=== PATIENT | female | born 1960 | race Caucasian/White ===

== ENCOUNTER 2023-05-18 18:17 | Inpatient (IN) | payer BC, MEDICAID, OTHER ==
[2023-05-18 19:22] LABS: ALT 16 U/L (4-34); African American GFR (CKD) >90 (>60 ml/min/1.73 sqM); Anion Gap 9 mmol/L; Blood Urea Nitrogen 10 mg/dL (7-17); Calcium 9.5 mg/dL (8.4-10.2); Carbon Dioxide 26 mmol/L (22-30); Chloride 104 mmol/L (98-107); Glucose 169 mg/dL (74-99); Non-African American GFR(CKD) >90 (>60 ml/min/1.73 sqM); Sodium 139 mmol/L (137-145); Total Protein 7.6 g/dL (6.3-8.2)
[2023-05-18 19:24] LABS: Basophils % (A) 0 %; Eosinophils # (A) 0.2 k/uL (0-0.7); Eosinophils % (A) 2 %; HCT 43.2 % (34.0-46.0); Lymphocytes # (A) 2.4 k/uL (1.0-4.8); Lymphocytes % (A) 20 %; MCH 31.6 pg (25.0-35.0); MCHC 32.4 g/dL (31.0-37.0); MCV 97.7 fL (80.0-100.0); Mean Platelet Volume 8.5; Monocytes % (A) 8 %; Neutrophils # (A) 8.2 k/uL (1.3-7.7); Neutrophils % (A) 68 %; Platelet Count 315 k/uL (150-450); RBC 4.43 m/uL (3.80-5.40); RDW 13.7 % (11.5-15.5); WBC 12.1 k/uL (3.8-10.6)
[2023-05-18 19:27] LABS: AST 36 U/L (14-36); Albumin 4.3 g/dL (3.5-5.0); Alkaline Phosphatase 52 U/L (38-126); Potassium 4.5 mmol/L (3.5-5.1); Total Bilirubin 0.6 mg/dL (0.2-1.3)
--- NOTE | 2023-05-18 19:28 | ED ---
Psych HPI - General Chief Complaint: Psychiatric Symptoms Stated Complaint: Mental Health Time Seen by Provider: 05/18/23 18:22 Source: patient, EMS Mode of arrival: EMS - History of Present Illness Initial Comments: The patient's a 63-year-old female with a history of schizophrenia and psychosis who presents to the emergency room via EMS for mental health review. Patient's daughter called EMS as she felt as though the mother was a danger to herself. The patient has not been acting herself over the last week. She has been staying with her daughter and granddaughter since her suddenly a week ago. The patient denies any suicidal or homicidal ideation. She denies any auditory or visual hallucinations. She is unsure exactly why her daughter called EMS however she is annoyed. Patient is alert and oriented to person and place. Her daughter she has been abnormal and is a danger to herself and others. She has threatened to hurt her daughter and yesterday believed her daugther was another person... "an imposter". She left the stove on all night after using it to light a cigarette. The daughter states the patient's grandaughter has been having to sleeping with her bedroom door locked because she would wake up and her grandmother would be hovering over her bed. She has not been eating or taking care of herself. She is supposed to be on medication for schizophrenia but has not been on this medication for several years. The daughter states that the patient's had been able to manage her well whelping off of the medication however since his , her behaviour has progressed. - Related Data Allergies Allergy/AdvReac Type Severity Reaction Status Date / Time Penicillins Allergy Unknown Verified 05/18/23 18:44 Review of Systems ROS Statement: Those systems with pertinent positive or pertinent negative responses have been documented in the HPI. ROS Other: All systems not noted in ROS Statement are negative. Past Medical History Past Medical History: Hypertension History of Any Multi-Drug Resistant Organisms: None Reported Past Surgical History: No Surgical Hx Reported Past Psychological History: No Psychological Hx Reported Smoking Status: Current every day smoker Past Alcohol Use History: None Reported Past Drug Use History: None Reported General Exam Limitations: no limitations General appearance: alert Head exam: Present: atraumatic Eye exam: Present: normal appearance ENT exam: Present: normal exam Neck exam: Present: normal inspection Respiratory exam: Present: normal lung sounds bilaterally Cardiovascular Exam: Present: regular rate, normal rhythm GI/Abdominal exam: Present: soft Extremities exam: Present: full ROM Back exam: Present: normal inspection, full ROM Neurological exam: Present: alert, CN II-XII intact, other (oriented x 2, no focal deficits, steady gait) Psychiatric exam: Present: flat affect, other (no SI or HI. no hallucinations. slow with following commands for understanding instructionsa) Skin exam: Present: warm, dry Course Vital Signs 05/18/23 18:18 Temperature 98.5 F Pulse Rate 89 Respiratory 18 Rate Blood Pressure 112/70 O2 Sat by Pulse 99 Oximetry - Reevaluation(s) Reevaluation #1: 05/18/23 22:02 The patient is refusing to talk to behavior health. Given that there is a concern for the patient's safety and the safety of her family she is living with his she is not safe to go home at this time. she will be admitted to medical with hopes you she speak with behavioral health later tonight or tomorrow. Medical Decision Making - Medical Decision Making Was pt. sent in by a medical professional or institution (, PA, ACTING INSTRUCTOR, urgent care, hospital, or correction...) When possible be specific @ -[No] Did you speak to anyone other than the patient for history (EMS, parent, family, police, friend...)? What history was obtained from this source @ -Daughter at the bedside who called EMS. The daughter called EMS as she was concerned for the patients the health and altered behavior. The patient has a history of psychosis but has not been taking medications for several years. Since her a week ago she has been staying with her daughter and has not been acting appropriately. She has made threats to her daughter and has threatened to harm her. She is also been found to be standing over her daughter's bed in the middle of the night and now her daughter has to sleep with the door locked. she has thought her daughter was at imposter and did not know who she was speaking to yesterday. She also left the stove on after lighting a cigarette in the daughter found that it was on when she woke up this morning. Did you review nursing and triage notes (agree or disagree)? Why? @ -[I reviewed and agree with nursing and triage notes] Were old charts reviewed (outside hosp., previous admission, EMS record, old EKG, old radiological studies, urgent care reports/EKG's, correction records)? Report findings @ -[No old charts were reviewed] Differential Diagnosis (chest pain, altered mental status, abdominal pain women, abdominal pain men, vaginal bleeding, weakness, fever, dyspnea, syncope, headache, dizziness, GI bleed, back pain, seizure, CVA, palpatations, mental health, musculoskeletal)? @ -Psychosis, altered mental status, urinary tract infection, early dementia EKG interpreted by me (3pts min.). @ -[As above] X-rays interpreted by me (1pt min.). @ -[Chest x-ray is negative for pneumonia, pneumothorax or other acute changes. CT interpreted by me (1pt min.). @ -[CT of the head is negative for any mass hemorrhage or other acute changes, there is atrophy noted.U/S interpreted by me (1pt. min.). @ -[None done] What testing was considered but not performed or refused? (CT, X-rays, U/S, labs)? Why? @ -[None] What meds were considered but not given or refused? Why? @ -[None] Did you discuss the management of the patient with other professionals (professionals i.e. , PA, ACTING INSTRUCTOR, lab, RT, psych nurse, child welfare social worker, sole seamer, teacher, program officer, caseworker)? Give summary @ -[Discussed patient's symptoms are And disposition with attending physicians Dr. Capps and Dr Perez regarding patients workup admission plan and behavior health evaluation. Was smoking cessation discussed for >3mins.? @ -[No] Was critical care preformed (if so, how long)? @ -[No] Were there social determinants of health that impacted care today? How? (Homelessness, low income, unemployed, alcoholism, drug addiction, transportation, low edu. Level, literacy, decrease access to med. care, intermediate, rehab)? @ -[No] Was there de-escalation of care discussed even if they declined (Discuss DNR or withdrawal of care, Hospice)? DNR status @ -[No] What co-morbidities impacted this encounter? (DM, HTN, Smoking, COPD, CAD, Cancer, CVA, ARF, Chemo, Hep., AIDS, mental health diagnosis, sleep apnea, mo rbid obesity)? @ -[History of schizophrenia, psychosis, noncompliant Was patient admitted / discharged? Hospital course, mention meds given and route, prescriptions, significant lab abnormalities, going to OR and other pertinent info. @ -[Attempted to have the patient admitted under behavior health however the patient will not speak with the behavioral health team were give a urine sample appropriately. The medical team did not feel as though the patient needed to be admitted medically as this seemed to be at behavior health issue as she will not speak with anyone. Patient will stay in the emergency room until she speaks with the behavioral health team for psych admission/hold. Undiagnosed new problem with uncertain prognosis? @ -[No] Drug Therapy requiring intensive monitoring for toxicity (Heparin, Nitro, Insulin, Cardizem)? @ -[No] Were any procedures done? @ -[No] Diagnosis/symptom? @ -Psychosis, AMS Acute, or Chronic, or Acute on Chronic? @ acute Uncomplicated (without systemic symptoms) or Complicated (systemic symptoms)? @ -[default] Side effects of treatment? @ -[No] Exacerbation, Progression, or Severe Exacerbation? @ -[No] Poses a threat to life or bodily function? How? (Chest pain, [place], [place], pneumonia, PE, COPD, DKA, ARF, appy, cholecystitis, CVA, Diverticulitis, Homicidal, Suicidal, threat to staff... and all critical care pts) @ -[No] - Lab Data Result diagrams: 05/18/23 18:39 05/18/23 19:05 Lab Results 05/18/23 05/18/23 05/18/23 Range/Units 18:39 19:05 19:05 WBC 12.1 H (3.8-10.6) k/uL RBC 4.43 (3.80-5.40) m/uL Hgb 14.0 (11.4-16.0) gm/dL Hct 43.2 (34.0-46.0) % MCV 97.7 (80.0-100.0) fL MCH 31.6 (25.0-35.0) pg MCHC 32.4 (31.0-37.0) g/dL RDW 13.7 (11.5-15.5) % Plt Count 315 (150-450) k/uL MPV 8.5 Neutrophils % 68 % Lymphocytes % 20 % Monocytes % 8 % Eosinophils % 2 % Basophils % 0 % Neutrophils # 8.2 H (1.3-7.7) k/uL Lymphocytes # 2.4 (1.0-4.8) k/uL Monocytes # 1.0 (0-1.0) k/uL Eosinophils # 0.2 (0-0.7) k/uL Basophils # 0.0 (0-0.2) k/uL Sodium 139 (137-145) mmol/L Potassium 4.5 (3.5-5.1) mmol/L Chloride 104 (98-107) mmol/L Carbon Dioxide 26 (22-30) mmol/L Anion Gap 9 mmol/L BUN 10 (7-17) mg/dL Creatinine 0.71 (0.52-1.04) mg/dL Est GFR (CKD-EPI)AfAm >90 (>60 ml/min/1.73 sqM) Est GFR (CKD-EPI)NonAf >90 (>60 ml/min/1.73 sqM) Glucose 169 H (74-99) mg/dL Calcium 9.5 (8.4-10.2) mg/dL Total Bilirubin 0.6 (0.2-1.3) mg/dL AST 36 (14-36) U/L ALT 16 (4-34) U/L Alkaline Phosphatase 52 (38-126) U/L Total Protein 7.6 (6.3-8.2) g/dL Albumin 4.3 (3.5-5.0) g/dL Influenza Type A (PCR) Not Detected (Not Detectd) Influenza Type B (PCR) Not Detected (Not Detectd) RSV (PCR) Not Detected (Not Detectd) SARS-CoV-2 (PCR) Not Detected (Not Detectd) - Radiology Data Radiology results: report reviewed, image reviewed Disposition Clinical Impression: AMS (altered mental status), Psychosis, URI (upper respiratory infection) Disposition: ADMITTED IP TO THIS [facility] Condition: Fair Referrals: None,Stated [Primary Care Provider] - 1-2 days Decision Time: 22:36
--- NOTE | 2023-05-18 19:32 | CT ---
EXAMINATION TYPE: CT brain wo con DATE OF EXAM: 05/18/2023 COMPARISON: INDICATION: AMS DLP: 1197.4 mGycm, Automated exposure control for dose reduction was used. CONTRAST: None CT of the brain is performed utilizing 3 mm thick sections through the posterior fossa and 3 mm thick sections through the remaining calvarium. Study is performed within 24 hours of arrival to the hosp ital. No abnormal hyperdensity is present to suggest an acute intracranial hemorrhage. No mass lesion is evident. No acute infarcts are evident. Minimal periventricular white matter hypodensity is present, likely on the basis of chronic white matter ischemic change. Ventricles and sulci are prominent for the patient age. Paranasal sinuses and mastoid air cells within the [id number] are clear. Right septal deviation is present. IMPRESSION: 1. Mild chronic appearing periventricular white matter ischemic changes. An interval development fr om comparison. 2. Mild age-related atrophy.
--- NOTE | 2023-05-18 20:09 | XR ---
EXAMINATION TYPE: XR chest 2V DATE OF EXAM: 05/18/2023 COMPARISON: 10/02/2013 INDICATION: Persistent cough TECHNIQUE: Frontal and lateral views of the chest are obtained. FINDINGS: The heart size is normal. The pulmonary vasculature is normal. The lungs are clear. IMPRESSION: 1. No acute pulmonary process.
[2023-05-19] MEDS ORDERED: HALOPERIDOL LACTATE 5 MG/ML 1 ML VIAL IM PRN (21:00)
[2023-05-19] MEDS ORDERED: LORazepam 2 MG/ML INJ IM PRN (21:00)
[2023-05-19] MEDS ORDERED: LORazepam 2 MG/ML INJ ONE (21:07)
[2023-05-20] MEDS: NICOTINE 14MG/24HR PATCH TRANSDERM SCH (10:42)
--- NOTE | 2023-05-20 13:12 | P.HP ---
Psychiatric H&P - . H&P Date: 05/20/23 History & Physical: Allergies Allergy/AdvReac Type Severity Reaction Status Date / Time Penicillins Allergy Unknown Verified 05/19/23 08:17 Vital Signs Temp 97.5 F L 05/20/23 07:02 Pulse 47 L 05/20/23 07:02 Resp 16 05/19/23 16:00 BP 110/57 05/20/23 07:02 Pulse Ox 99 05/19/23 16:00 FiO2 Intake & Output 05/19/23 05/20/23 05/20/23 18:59 06:59 18:59 Weight 53.297 kg Laboratory Last Values WBC 12.1 k/uL (3.8-10.6) H 05/18/23 18:39 RBC 4.43 m/uL (3.80-5.40) 05/18/23 18:39 Hgb 14.0 gm/dL (11.4-16.0) 05/18/23 18:39 Hct 43.2 % (34.0-46.0) 05/18/23 18:39 MCV 97.7 fL (80.0-100.0) 05/18/23 18:39 MCH 31.6 pg (25.0-35.0) 05/18/23 18:39 MCHC 32.4 g/dL (31.0-37.0) 05/18/23 18:39 RDW 13.7 % (11.5-15.5) 05/18/23 18:39 Plt Count 315 k/uL (150-450) 05/18/23 18:39 MPV 8.5 05/18/23 18:39 Neutrophils % 68 % 05/18/23 18:39 Lymphocytes % 20 % 05/18/23 18:39 Monocytes % 8 % 05/18/23 18:39 Eosinophils % 2 % 05/18/23 18:39 Basophils % 0 % 05/18/23 18:39 Neutrophils # 8.2 k/uL (1.3-7.7) H 05/18/23 18:39 Lymphocytes # 2.4 k/uL (1.0-4.8) 05/18/23 18:39 Monocytes # 1.0 k/uL (0-1.0) 05/18/23 18:39 Eosinophils # 0.2 k/uL (0-0.7) 05/18/23 18:39 Basophils # 0.0 k/uL (0-0.2) 05/18/23 18:39 Sodium 139 mmol/L (137-145) 05/18/23 19:05 Potassium 4.5 mmol/L (3.5-5.1) 05/18/23 19:05 Chloride 104 mmol/L (98-107) 05/18/23 19:05 Carbon Dioxide 26 mmol/L (22-30) 05/18/23 19:05 Anion Gap 9 mmol/L 05/18/23 19:05 BUN 10 mg/dL (7-17) 05/18/23 19:05 Creatinine 0.71 mg/dL (0.52-1.04) 05/18/23 19:05 Est GFR (CKD-EPI)AfAm >90 (>60 ml/min/1.73 sqM) 05/18/23 19:05 Est GFR (CKD-EPI)NonAf >90 (>60 ml/min/1.73 sqM) 05/18/23 19:05 Glucose 169 mg/dL (74-99) H 05/18/23 19:[address] Glu mg/dL 108 mg/dL 05/18/23 19:05 Hemoglobin A1c 5.4 % (<=6.0) 05/18/23 19:05 Calcium 9.5 mg/dL (8.4-10.2) 05/18/23 19:05 Total Bilirubin 0.6 mg/dL (0.2-1.3) 05/18/23 19:05 AST 36 U/L (14-36) 05/18/23 19:05 ALT 16 U/L (4-34) 05/18/23 19:05 Alkaline Phosphatase 52 U/L (38-126) 05/18/23 19:05 Total Protein 7.6 g/dL (6.3-8.2) 05/18/23 19:05 Albumin 4.3 g/dL (3.5-5.0) 05/18/23 19:05 TSH 0.804 mIU/L (0.465-4.680) 05/18/23 18:46 Influenza Type A (PCR) Not Detected (Not Detectd) 05/18/23 19:05 Influenza Type B (PCR) Not Detected (Not Detectd) 05/18/23 19:05 RSV (PCR) Not Detected (Not Detectd) 05/18/23 19:05 SARS-CoV-2 (PCR) Not Detected (Not Detectd) 05/18/23 19:05 05/20/23 13:04 IDENTIFYING DATA: Patient is a 63-year-old female with a chronic history of schizophrenia, currently living with her daughter HPI: Patient presented to the hospital yesterday and was evaluated in the ER for mental health evaluation. Patient was petitioned by her daughter stating a patient with paranoid and illogical and delusional. Patient apparently has a chronic history of schizophrenia. According to ER report patient's apparently suddenly about a week ago and she moved in with her daughter however she is not able to take care of him her any longer. Apparently she has been threatening to hurt her daughter and also has been wandering into her granddaughter's room at nighttime. Patient received a Haldol and Ativan as a when necessary last night for agitation and psychosis. Patient apparently has been uncooperative with staff and mainly laying in her bed. Patient was seen by typewriter mechanic today laying in bed. Network Liaison came into her room and attempted to speak with her. Patient was fairly uncooperative, only answered some questions. She knew that she was in "[facility]" however did not state what city she is in. She claims that she came to the hospital "harassed". She does not know today's date she was fairly resistant when asking about her name and date of . She reversed questions back at typewriter mechanic. Very poor insight and judgment. Network Liaison at tempted to speak with patient about medications and psychiatric history however patient refused to speak about it and answer questions. Denies any issues with sleep or appetite. Very poor impulse control and poor decision making. At this time patient denies any auditory or visual hallucinations. When patient was asked about her suicide or homicidal thoughts, she states "why are you asking me that". She denies using any recreational drugs. She was fairly poor historian and refused to answer any other questions related to her psychiatric history or social history. PAST PSYCHIATRIC HISTORY: Patient apparently has a chronic history of schizophrenia. Patient denies being on any psychiatric medications. Patient apparently used to be on psychiatric medications and receiving treatment at [facility] over her case was closed several years ago. PMH: As per ER note ALLERGIES: as per EMR CHEMICAL DEPENDENCY HISTORY: as per HPI FAMILY PSYCHIATRIC/SUBSTANCE USE HISTORY: Unable to gather SOCIAL HISTORY: Unable to gather information. Patient apparently is currently living with her daughter MENTAL STATUS EXAM: General Appearance: Patient appears to be laying in bed, poor hygiene and grooming, stated age is alert, uncooperative irritable. Patient appears to have poor hygiene and grooming. Behavior: Patient is seated without any agitated behavior. Uncooperative. Evasive. Speech: Patient's speech is fluent and nonpressured. [place]. Mood/Affect: Unable to assess Suicidality/Homicidality: Unable to assess Perceptions: Patient denies any visual hallucinations and denies any auditory hallucinations Though content/process: [place], poverty of content. Uncooperative. Memory and concentration: Patient is alert and oriented to hospital name only, any uncooperative with the rest of the exam Judgment and insight: poor chronically STRENGTHS/WEAKNESSES: strength is that patient is resilient. Weakness is that patient has poor judgment and is impulsive INTELLECT: average IMPRESSIONS: Schizophrenia Nicotine dependence PLAN: -Patient is admitted under involuntary status to MHU for stabilization of psychiatric symptoms and safety. Patient has not signed adult voluntary form and medication consent and is placed in patient's chart. A second certification was completed and along with petition will be filed for court. -Medications : Prolixin by mouth 3 mg twice a day for psychosis. Plan will be to transition patient onto long-acting injection. Trazodone 50 mg daily at bedtime for sleep. -Ativan and Haldol PRN for agitation/aggression -Patient was informed of the risks, benefits and side effects of the medication -Internal Medicine consult to perform medical evaluation and physical. -NRT - nicotine patch -SW on board for discharge planning. Encourage patient to participate in groups to work on coping skills. Will await deferral and court date. Will gather further collateral from family and likely need to start looking at placement options as daughter claims that she is not able to care for her at the house any longer. 05/20/23 13:10
[2023-05-20] MEDS: traZODone HCL 50 MG TAB PO SCH (19:51)
[2023-05-20] MEDS: LORazepam 1 MG TAB PO PRN (22:27)
[2023-05-20] MEDS: haloperidoL 5 MG TAB PO PRN (22:27)
[2023-05-21 02:22] LABS: Chol/HDL Ratio 3.56 Ratio; LDL Cholesterol,Calculated 100.2 mg/dL (0.0-131.0)
[2023-05-21] MEDS: ACETAMINOPHEN TAB 325 MG TAB PO PRN (04:01)
[2023-05-21] MEDS: LORazepam 1 MG TAB PO PRN (04:02)
[2023-05-21 04:21] LABS: Appearance,Urine Clear (Clear); Bilirubin,Urine Negative (Negative); Blood,Urine Negative (Negative); Color,Urine Colorless; Glucose,Urine (UA) Negative (Negative); Ketones,Urine Negative (Negative); Leukocyte Esterase,Urine Negative (Negative); Nitrite,Urine Negative (Negative); Protein,Urine Negative (Negative); Specific Gravity,Urine 1.015 (1.001-1.035); Urobilinogen,Urine <2.0 mg/dL (<2.0)
[2023-05-21 04:31] LABS: Amphetamine Screen,Urine Not Detected (NotDetected); Barbiturate Screen,Urine Not Detected (NotDetected); Benzodiazepines Screen,Urine Detected (NotDetected); Cocaine Screen,Urine Not Detected (NotDetected); Methadone Screen, Urine Not Detected (NotDetected); Opiate Screen,Urine Not Detected (NotDetected); Oxycodone Screen, Urine Not Detected (NotDetected); Phencyclidine Screen,Urine Not Detected (NotDetected); Tricyclic Antidepressant,Urine Not Detected (NotDetected); Urn Cannabinoid Scrn Not Detected (NotDetected)
--- NOTE | 2023-05-21 11:04 | P.PN ---
Subjective Progress Note Date: 05/21/23 Principal diagnosis: IMPRESSIONS: Schizophrenia Nicotine dependence 05/21/23 IDENTIFYING DATA: Patient is a 63-year-old female with a chronic history of schizophrenia, currently living with her daughter An attempt was made to see this patient for follow-up The patient was and one-to-one observation along with one of the nursing staff's I was informed that the patient had just received a when necessary medications and was too sedated On approach patient seemed to be too groggy to be able to participate in the evaluation She attempted to open her eyes but went right back to sleep Further assessment could not be completed due to above reasons Following an excerpt from the assessment done by Dr. Gongora from yesterday which is included here for completeness ''' HPI: Patient presented to the hospital yesterday and was evaluated in the ER for mental health evaluation. Patient was petitioned by her daughter stating a patient with paranoid and illogical and delusional. Patient apparently has a chronic history of schizophrenia. According to ER report patient's apparently suddenly about a week ago and she moved in with her daughter however she is not able to take care of him her any longer. Apparently she has been threatening to hurt her daughter and also has been wandering into her granddaughter's room at nighttime. Patient received a Haldol and Ativan as a when necessary last night for agitation and psychosis. Patient apparently has been uncooperative with staff and mainly laying in her bed. Patient was seen by typewriter operator automatic today laying in bed. Senior Product Marketing Manager came into her room and attempted to speak with her. Patient was fairly uncooperative, only answered some questions. She knew that she was in "[facility]" however did not state what city she is in. She claims that she came to the hospital "harassed". She does not know today's date she was fairly resistant when asking about her name and date of . She reversed questions back at typewriter operator automatic. Very poor insight and judgment. Senior Product Marketing Manager attempted to speak with patient about medications and psychiatric history however patient refused to speak about it and answer questions. Denies any issues with sleep or appetite. Very poor impulse control and poor decision making. At this time patient denies any auditory or visual hallucinations. When patient was asked about her suicide or homicidal thoughts, she states "why are you asking me that". She denies using any recreational drugs. She was fairly poor historian and refused to answer any other questions related to her psychiatric history or social history. PAST PSYCHIATRIC HISTORY: Patient apparently has a chronic history of delores izophrenia. Patient denies being on any psychiatric medications. Patient apparently used to be on psychiatric medications and receiving treatment at [facility] over her case was closed several years ago. MENTAL STATUS EXAM: From the previous day at the time of admission General Appearance: Patient appears to be laying in bed, poor hygiene and grooming, stated age is alert, uncooperative irritable. Patient appears to have poor hygiene and grooming. Behavior: Patient is seated without any agitated behavior. Uncooperative. Evasive. Speech: Patient's speech is fluent and nonpressured. [place]. Mood/Affect: Unable to assess Suicidality/Homicidality: Unable to assess Perceptions: Patient denies any visual hallucinations and denies any auditory hallucinations Though content/process: [place], poverty of content. Uncooperative. Memory and concentration: Patient is alert and oriented to hospital name only, any uncooperative with the rest of the exam Judgment and insight: poor chronically STRENGTHS/WEAKNESSES: strength is that patient is resilient. Weakness is that patient has poor judgment and is impulsive INTELLECT: average IMPRESSIONS: Schizophrenia Nicotine dependence PLAN: -Patient is admitted under involuntary status to MHU for stabilization of psychiatric symptoms and safety. Patient has not signed adult voluntary form and medication consent and is placed in patient's chart. A second certification was completed and along with petition will be filed for court. -Medications : Prolixin by mouth 3 mg twice a day for psychosis. Plan will be to transition patient onto long-acting injection. Trazodone 50 mg daily at bedtime for sleep. -Ativan and Haldol PRN for agitation/aggression -Patient was informed of the risks, benefits and side effects of the medication -Internal Medicine consult to perform medical evaluation and physical. -NRT - nicotine patch -SW on board for discharge planning. Encourage patient to participate in groups to work on coping skills. Will await deferral and court date. Will gather further collateral from family and likely need to start looking at placement options as daughter claims that she is not able to care for her at the house any longer. 05/21/23 Boo Valles M.D. Objective - Vital Signs Vital signs: Vital Signs Temp 97.7 F 05/21/23 01:26 Pulse 77 05/21/23 01:26 Resp 15 05/21/23 01:26 BP 113/56 05/21/23 01:26 Pulse Ox 99 05/21/23 01:26 FiO2 Intake & Output 05/20/23 05/21/23 05/21/23 18:59 06:59 18:59 Intake Total 60 Balance 60 Weight 53.297 kg Intake: Oral 60 - Labs CBC & Chem 7: 05/18/23 18:39 05/18/23 19:05 Labs: Abnormal Lab Results - Last 24 Hours (Table) 05/18/23 05/21/23 Range/Units 18:46 03:38 Triglycerides 164.00 H (0.00-149.00) mg/dL U Benzodiazepines Scrn Detected H (NotDetected)
[2023-05-21] MEDS: NICOTINE 14MG/24HR PATCH TRANSDERM SCH (15:01)
[2023-05-21] MEDS: traZODone HCL 50 MG TAB PO SCH (20:53)
[2023-05-21] MEDS: haloperidoL 5 MG TAB PO PRN (22:27)
[2023-05-22] MEDS: LORazepam 1 MG TAB PO PRN ×2 (01:02→21:02)
[2023-05-22] MEDS: ACETAMINOPHEN TAB 325 MG TAB PO PRN (01:02)
--- NOTE | 2023-05-22 10:11 | P.PN ---
Subjective Progress Note Date: 05/22/23 Principal diagnosis: IMPRESSIONS: Schizophrenia Nicotine dependence : Patient is a 63-year-old female with a chronic history of schizophrenia, currently living with her daughter An attempt was made to see this patient for follow-up The patient was and one-to-one observation along with one of the nursing staff's Patient remains groggy and is unable to participate in any meaningful conversation Staff reports that when she gets up that she wanders around in the state of confusion but has not been aggressive On approach patient seemed to be too groggy to be able to participate in the evaluation She attempted to open her eyes but went right back to sleep Further assessment could not be completed due to above reasons Following an excerpt from the assessment done by Dr. Gongora from yesterday which is included here for completeness ''' HPI: Patient presented to the hospital yesterday and was evaluated in the ER for mental health evaluation. Patient was petitioned by her daughter stating a patient with paranoid and illogical and delusional. Patient apparently has a chronic history of schizophrenia. According to ER report patient's apparently suddenly about a week ago and she moved in with her daughter however she is not able to take care of him her any longer. Apparently she has been threatening to hurt her daughter and also has been wandering into her granddaughter's room at nighttime. Patient received a Haldol and Ativan as a when necessary last night for agitation and psychosis. Patient apparently has been uncooperative with staff and mainly laying in her bed. Patient was seen by lyric writer today laying in bed. Prenatal Nurse came into her room and attempted to speak with her. Patient was fairly uncooperative, only answered some questions. She knew that she was in "[facility]" however did not state what city she is in. She claims that she came to the hospital "harassed". She does not know today's date she was fairly resistant when asking about her name and date of . She reversed questions back at lyric writer. Very poor insight and judgment. Prenatal Nurse attempted to speak with patient about medications and psychiatric history however patient refused to speak about it and answer questions. Denies any issues with sleep or appetite. Very poor impulse control and poor decision making. At this time patient denies any auditory or visual hallucinations. When patient was asked about her suicide or homicidal thoughts, she states "why are you asking me that". She denies using any recreational drugs. She was fairly p oor historian and refused to answer any other questions related to her psychiatric history or social history. PAST PSYCHIATRIC HISTORY: Patient apparently has a chronic history of schizophrenia. Patient denies being on any psychiatric medications. Patient apparently used to be on psychiatric medications and receiving treatment at [facility] over her case was closed several years ago. MENTAL STATUS EXAM: From the previous day at the time of admission General Appearance: Patient appears to be laying in bed, poor hygiene and grooming, stated age is alert, uncooperative irritable. Patient appears to have poor hygiene and grooming. Behavior: Patient is seated without any agitated behavior. Uncooperative. Evasive. Speech: Patient's speech is fluent and nonpressured. [place]. Mood/Affect: Unable to assess Suicidality/Homicidality: Unable to assess Perceptions: Patient denies any visual hallucinations and denies any auditory hallucinations Though content/process: [place], poverty of content. Uncooperative. Memory and concentration: Patient is alert and oriented to hospital name only, any uncooperative with the rest of the exam Judgment and insight: poor chronically STRENGTHS/WEAKNESSES: strength is that patient is resilient. Weakness is that patient has poor judgment and is impulsive INTELLECT: average IMPRESSIONS: Schizophrenia Nicotine dependence PLAN: -Patient is admitted under involuntary status to MHU for stabilization of psychiatric symptoms and safety. Patient has not signed adult voluntary form and medication consent and is placed in patient's chart. A second certification was completed and along with petition will be filed for court. -Medications : will decrease Prolixin by mouth to 2 mg twice a day for psychosis. Plan will be to transition patient onto long-acting injection. Trazodone 50 mg daily at bedtime for sleep. -Ativan and Haldol PRN for agitation/aggression -Patient was informed of the risks, benefits and side effects of the medication -Internal Medicine consult to perform medical evaluation and physical. -NRT - nicotine patch -SW on board for discharge planning. Encourage patient to participate in groups to work on coping skills. Will await deferral and court date. Will gather further collateral from family and likely need to start looking at placement options as daughter claims that she is not able to care for her at the house any longer. 05/21/23 Boo Valles M.D. Objective - Vital Signs Vital signs: Vital Signs Temp 98.6 F 05/22/23 06:11 Pulse 77 05/22/23 06:11 Resp 18 05/22/23 06:11 BP 111/86 05/22/23 06:11 Pulse Ox 99 05/21/23 01:26 FiO2 - Labs CBC & Chem 7: 05/18/23 18:39 05/18/23 19:05
[2023-05-22] MEDS: NICOTINE 14MG/24HR PATCH TRANSDERM SCH (13:00)
[2023-05-22] MEDS: traZODone HCL 50 MG TAB PO SCH (21:02)
[2023-05-23] MEDS: NICOTINE 14MG/24HR PATCH TRANSDERM SCH (09:29)
[2023-05-23 10:39] VITALS: BMI 18.9
[2023-05-23] MEDS ORDERED: OLANZapine 10 MG VIAL IM PRN (11:46)
--- NOTE | 2023-05-23 11:48 | P.PN ---
Progress Note - Text Progress Note Date: 05/23/23 Interval History: Patient was seen [wandering the hallways] with a one-to-one sitter today and was directable and agreeable to speak with underwriter in the lounge. Patient continued to be fairly disinterested in conversation. She only answered some questions today. She knows that she is in a hospital however does not know which one. She refused to state her full name. She does not know today's date. She gave very little information about how she feels and about her weekend. She continues to have very poor insight and judgment, she appeared to be fairly distracted during conversation looking at the television and none looked away from underwriter. At this time patient denies any suicidal or homical ideations, intent or plan. Patient denies any auditory, visual hallucinations. Patient denies any side effects from the medications and has been compliant some medications. Mental Status Exam: General Appearance: Patient appears to be fairly thin, walking the hallways, mildly improving hygiene and grooming, stated age is alert, uncooperative, distracted. Patient appears to have improving hygiene and grooming. Behavior: Patient is seated without any agitated behavior. Uncooperative. Evasive. Distracted Speech: Patient's speech is fluent and nonpressured. [place]. Mood/Affect: Denies any depression today, affect is constricted. Suicidality/Homicidality: Denies Perceptions: Patient denies any visual hallucinations and denies any auditory hallucinations Though content/process: [place], poverty of content. Uncooperative. Memory and concentration: Patient is alert and oriented to hospital name only, any uncooperative with the rest of the exam Judgment and insight: poor chronically IMPRESSIONS: Schizophrenia Nicotine dependence PLAN: -Patient is admitted under involuntary status to MHU for stabilization of psychiatric symptoms and safety. Patient has not signed adult voluntary form and medication consent and is placed in patient's chart. A second certification was completed and along with petition will be filed for court. -Medications : Prolixin by mouth 2 mg twice a day for psychosis. Plan will be to transition patient onto long-acting injection. increase Trazodone 100 mg daily at bedtime for sleep. -Zyprexa PRN for agitation/aggression -NRT - nicotine patch -SW on board for discharge planning. Encourage patient to participate in groups to work on coping skills. Will await deferral and court date. Will gather further collateral from family and likely need to start looking at placement options as daughter claims that she is not able to care for her at the house any longer.
[2023-05-23 11:55] VITALS: RESP 16
[2023-05-23] MEDS ORDERED: traZODone HCL 100 MG TAB PO SCH (21:00)
[2023-05-23] MEDS: OLANZapine 5 MG TAB PO PRN (23:07)
[2023-05-23] MEDS: ACETAMINOPHEN TAB 325 MG TAB PO PRN (23:55)
[2023-05-24] MEDS: NICOTINE 14MG/24HR PATCH TRANSDERM SCH ×2 (09:17→14:25)
[2023-05-24] MEDS: risperiDONE 1 MG TAB PO SCH ×2 (12:47→20:47)
--- NOTE | 2023-05-24 13:13 | P.PN ---
Progress Note - Text Progress Note Date: 05/24/23 Interval History: Patient was seen [wandering the hallways] with a one-to-one sitter today and was directable and agreeable to speak with director underwriter sales in the lounge. Patient continues to be difficult to redirect sometimes and wandering into patient's rooms. She appears to be more polite today and more directable during conversation with director underwriter sales. She claims that she is doing "okay" and denied any complaints. States that she does not know how long she slept last night. She continues to have very limited insight and judgment. We spoke about having her daughter come in for a visit tomorrow and also the court hearing date scheduled for tomorrow. she appeared to be fairly distracted during conversation. At this time patient denies any suicidal or homical ideations, intent or plan. Patient denies any auditory, visual hallucinations. Patient denies any side effects from the medications and has been compliant some medications. Mental Status Exam: General Appearance: Patient appears to be fairly thin, walking the hallways, mildly improving hygiene and grooming, stated age is alert, more cooperative, distracted. Patient appears to have improving hygiene and grooming. Behavior: Patient is seated without any agitated behavior. mildly more cooperative. less Evasive. Speech: Patient's speech is fluent and nonpressured. [place]. Mood/Affect: Denies any depression today, affect is constricted. Suicidality/Homicidality: Denies Perceptions: Patient denies any visual hallucinations and denies any auditory hallucinations Though content/process: [place], poverty of content. Uncooperative. Memory and concentration: Patient is alert and oriented to hospital name only, follows some commands Judgment and insight: poor/limited chronically, improving mildly IMPRESSIONS: Schizophrenia Nicotine dependence PLAN: -Patient is admitted under involuntary status to MHU for stabilization of psychiatric symptoms and safety. Patient has not signed adult voluntary form and medication consent and is placed in patient's chart. A second certification was completed and along with petition will be filed for court. -Medications : changed Prolixin to Risperdal 1 mg bid for psychosis as apparently did well on Risperdal BLAKE in the past. Plan will be to transition patient onto long-acting injection. changed Trazodone to doxepin 10 mg qhs for sleep with trazodone prn as apparently patient is not sleeping well. -Zyprexa PRN for agitation/aggression -NRT - nicotine patch -SW on board for discharge planning. Encourage patient to participate in groups to work on coping skills. court scheduled for tomorrow. patient will likely go and stay with daughter upon discharge and once she is stabilized.
[2023-05-24] MEDS: DOXEPIN 10 MG CAP PO SCH (20:47)
[2023-05-25] MEDS: risperiDONE 1 MG TAB PO SCH (08:40)
[2023-05-25] MEDS: NICOTINE 14MG/24HR PATCH TRANSDERM SCH (08:41)
--- NOTE | 2023-05-25 14:58 | P.PN ---
Progress Note - Text Progress Note Date: 05/25/23 Interval History: Patient was seen [wandering the hallways today and does not have a one-to-one sitter. Aluminizer attempted to approach patient who is sitting in the lounge and patient was somewhat avoidant of press writer. She was mildly suspicious of brighter and her speech continues to be somewhat disorganized along with her thought content.] Patient continues to be difficult to redirect sometimes, continues to display poor insight and judgment. She has been taking her medications. Apparently she has been wandering less into patient's rooms. States that she does not know how long she slept last night. she appeared to be fairly distracted during conversation. At this time patient denies any suicidal or homical ideations, intent or plan. Patient denies any auditory, visual hallucinations. Patient denies any side effects from the medications and has been compliant some medications. Mental Status Exam: General Appearance: Patient appears to be fairly thin, walking the hallways, mildly improving hygiene and grooming, stated age is alert, more cooperative, distracted. Patient appears to have improving hygiene and grooming. Behavior: Patient is seated without any agitated behavior. mildly more cooperative. less Evasive. distracted Speech: Patient's speech is fluent and nonpressured. [place]. Mood/Affect: Denies any depression today, affect is constricted. Suicidality/Homicidality: Denies Perceptions: Patient denies any visual hallucinations and denies any auditory hallucinations Though content/process: [place], poverty of content. less Uncooperative. bizarre content at times Memory and concentration: Patient is alert and oriented to hospital name only, follows some commands Judgment and insight: poor/limited chronically, improving mildly IMPRESSIONS: Schizophrenia Nicotine dependence PLAN: -Patient is admitted under involuntary status to MHU for stabilization of ps ychiatric symptoms and safety. Patient has not signed adult voluntary form and medication consent and is placed in patient's chart. A second certification was completed and along with petition will be filed for court. -Medications : increased Risperdal 1 mg daily + 2 mg qhs for psychosis as apparently did well on Risperdal BLAKE in the past. Plan will be to transition patient onto long-acting injection. continue doxepin 10 mg qhs for sleep -Zyprexa PRN for agitation/aggression -NRT - nicotine patch -SW on board for discharge planning. Encourage patient to participate in groups to work on coping skills. patient is now court ordered for mental health treatment, starting on 05/25/23. patient will likely go and stay with daughter upon discharge and once she is stabilized. will need to transition onto BLAKE.
[2023-05-25] MEDS: DOXEPIN 10 MG CAP PO SCH (22:00)
[2023-05-25] MEDS: risperiDONE 2 MG TAB PO SCH (22:00)
[2023-05-26] MEDS ORDERED: risperiDONE 1 MG TAB PO SCH (09:00)
[2023-05-26] MEDS: NICOTINE 14MG/24HR PATCH TRANSDERM SCH (09:54)
[2023-05-26] MEDS ORDERED: risperiDONE 1 MG TAB PO STA (10:14)
--- NOTE | 2023-05-26 11:30 | P.PN ---
Progress Note - Text Progress Note Date: 05/26/23 Interval History: Patient was seen [wandering the hallways today and does not have a one-to-one sitter. apparently patient was wandering into other people's rooms previously and the sitter was reinstated. Patient continues to be fairly distracted and avoidant of ticket writer. She did answer some basic questions. She knows that she is" [facility]". She was avoidant when asking about her name and today's date. States that she did speak with her daughter however is not able to recall the conversation. Continues to be somewhat bizarre and difficult to redirect. Illogical at times. States that she does not know how long she slept last night however it appears she is sleeping throuhg the night. At this time patient denies any suicidal or homical ideations, intent or plan. Patient denies any auditory, visual hallucinations. Patient denies any side effects from the medications and has been compliant some medications. Mental Status Exam: General Appearance: Patient appears to be fairly thin, walking the hallways, mildly improving hygiene and grooming, stated age is alert, more cooperative, distracted. Patient appears to have improving hygiene and grooming. Behavior: Patient is seated without any agitated behavior. mildly more cooperative. less Evasive. distracted Speech: Patient's speech is fluent and nonpressured. [place]. Mood/Affect: Denies any depression today, affect is constricted. Suicidality/Homicidality: Denies Perceptions: Patient denies any visual hallucinations and denies any auditory hallucinations Though content/process: [place], poverty of content. less Uncooperative. bizarre content at times, improving mildly Memory and concentration: Patient is alert and oriented to hospital name only, follows some commands Judgment and insight: poor/limited chronically, improving mildly IMPRESSIONS: Schizophrenia Nicotine dependence PLAN: -Patient is admitted under involuntary status to MHU for stabilization of psychiatric symptoms and safety. Patient has not signed adult voluntary form and medication consent and is placed in patient's chart. A second certification was completed and along with petition will be filed for court. -Medications : increased Risperdal 2 mg daily + 2 mg qhs for psychosis as apparently did well on Risperdal BLAKE in the past. Plan will be to transition patient onto long-acting injection. continue doxepin 10 mg qhs for sleep -Zyprexa PRN for agitation/aggression -NRT - nicotine patch -SW on board for discharge planning. Encourage patient to participate in groups to work on coping skills. patient is now court ordered for mental health treatment, starting on 05/25/23. patient will likely go and stay with daughter upon discharge and once she is stabilized. upcoming family meeting with daughter on tuesday at 11 am to discuss care and plan going forward. will need to transition onto BLAKE.
--- NOTE | 2023-05-26 17:37 | P.PN ---
Progress Note - Text Progress Note Date: 05/26/23 Attempted to see patient. She is wandering the halls at the moment. Not available to speak.
[2023-05-26] MEDS: risperiDONE 2 MG TAB PO SCH (21:26)
[2023-05-26] MEDS: DOXEPIN 10 MG CAP PO SCH (21:26)
[2023-05-27] MEDS ORDERED: risperiDONE 2 MG TAB PO SCH (09:00)
[2023-05-27] MEDS: NICOTINE 14MG/24HR PATCH TRANSDERM SCH (10:30)
[2023-05-27] MEDS ORDERED: PALIPERIDONE IM 234 MG/1.5 ML SYG IM STA (11:50)
--- NOTE | 2023-05-27 11:55 | P.PN ---
Progress Note - Text Progress Note Date: 05/27/23 Interval History: Patient was seen [wandering the hallways today and does not have a one-to-one sitter. Patient was approached by technical proposal writer to speak today however patient was minimally interacted with technical proposal writer and for the most part was disinterested in conversation. She was Illogical at times. [place], rambling. Not very directable today. She apparently has been sleeping through the night. At this time patient denies any suicidal or homical ideations, intent or plan. Patient denies any auditory, visual hallucinations. Patient has been taking her medications. Mental Status Exam: General Appearance: Patient appears to be fairly thin, walking the hallways, mildly improving hygiene and grooming, stated age is alert, not cooperative, distracted. Patient appears to have improving hygiene and grooming. Behavior: Patient is seated without any agitated behavior. less cooperative. distracted Speech: Patient's speech is fluent and nonpressured. [place]. Mood/Affect: Denies any depression today, affect is constricted. Suicidality/Homicidality: Denies Perceptions: Patient denies any visual hallucinations and denies any auditory hallucinations Though content/process: [place], poverty of content. less cooperative. bizarre content Memory and concentration: Patient is alert and oriented to hospital name only, follows some commands, distracted Judgment and insight: poor/limited chronically IMPRESSIONS: Schizophrenia Nicotine dependence PLAN: -Patient is admitted under involuntary status to MHU for stabilization of psychiatric symptoms and safety. Patient has not signed adult voluntary form and medication consent and is placed in patient's chart. A second certification was completed and along with petition will be filed for court. -Medications : Ordered Invega sustenna 234 mg IM today with plan to give 156 mg second dose on tuesday. titrate Risperdal PO down over the weekend, ordered placed, 2 mg qhs + 1 mg daily for psychosis. continue doxepin 10 mg qhs for sleep with prn trazodone for sleep -Zyprexa PRN for agitation/aggression -NRT - nicotine patch -SW on board for discharge planning. Encourage patient to participate in groups to work on coping skills. patient is now court ordered for mental health treatment, starting on 05/25/23. patient will likely go and stay with daughter upon discharge and once she is stabilized. upcoming family meeting with daughter on tuesday at 11 am to discuss care and plan going forward. will need to transition onto BLAKE, first Loading dose today
[2023-05-27] MEDS: risperiDONE 2 MG TAB PO SCH (21:16)
[2023-05-27] MEDS: DOXEPIN 10 MG CAP PO SCH ×2 (21:16→21:34)
[2023-05-28] MEDS: traZODone HCL 100 MG TAB PO PRN ×2 (00:53→20:15)
[2023-05-28] MEDS: OLANZapine 5 MG TAB PO PRN (02:00)
[2023-05-28] MEDS ORDERED: risperiDONE 1 MG TAB PO ONE (09:00)
[2023-05-28] MEDS: NICOTINE 14MG/24HR PATCH TRANSDERM SCH (09:07)
[2023-05-28] MEDS: risperiDONE 2 MG TAB PO SCH (20:14)
[2023-05-28] MEDS: ACETAMINOPHEN TAB 325 MG TAB PO PRN (20:15)
[2023-05-28] MEDS: DOXEPIN 10 MG CAP PO SCH (20:15)
[2023-05-29] MEDS: NICOTINE 14MG/24HR PATCH TRANSDERM SCH (09:03)
--- NOTE | 2023-05-29 11:25 | P.PN ---
Progress Note - Text Interval history: Patient was seen [wandering the hallways] and was directable and agreeable to speak with appeals writer. States that she is doing "good" there appears to be paranoia. She states that she is angry at her family.. At this time patient denies any suicidal or homicidal ideations intent or plan. Denies any Auditory or visual hallucinations. Patient denies any side effects from the medications and has been compliant with meds. Mental status exam: General Appearance: [Patient appears to be older than stated age is alert, directable, and cooperative.] Behavior: [No agitated behavior. Patient is calm and directable] Speech: Low volume, soft spoken Mood/Affect: Mood is "good", affect is congruent and constricted. Suicidality/Homicidality: Patient denies having any suicidal or homicidal ideation intent or plan. Perceptions: Patient denies any auditory or visual hallucinations. Though content/process: [Paranoia elicited, tangential thought process] Memory and concentration: AOX3, grossly intact for the purposes of this session Judgment and insight: improving mildly Assessment/Plan: Continue with current diagnosis. Patient continues to meet criteria for inpatient psychiatric admission for symptom stabilization and safety.[Patient will be maintained on current psychotropic medication regimen.] Monitor for medication compliance and for any psychotropic medication side effects. Will continue to monitor ongoing response to treatment. Encouraged participation in milieu.
--- NOTE | 2023-05-29 11:27 | P.PN ---
Progress Note - Text Interval history: Patient was seen in her room. She was sleeping for vast majority of the morning. [employer] attempted to wake her up patient continued to sleep Mental status exam: General Appearance: Appears older than stated age, lying in bed, sleeping comfortably Behavior: [No agitated behavior. Speech: Not assessed because patient was sleeping Mood/Affect: Could not assess because patient was sleeping Suicidality/Homicidality: Could not assess because patient was sleeping Perceptions: Could not assess because patient was sleeping Though content/process: Could not assess because patient was sleeping Memory and concentration: Could not assess because patient was sleeping Judgment and insight: Could not assess because patient was sleeping Assessment/Plan: Continue with current diagnosis. Patient continues to meet criteria for inpatient psychiatric admission for symptom stabilization and safety.[Patient will be maintained on current psychotropic medication regimen.] Monitor for medication compliance and for any psychotropic medication side effects. Will continue to monitor ongoing response to treatment. Encouraged participation in milieu.
[2023-05-29] MEDS: ACETAMINOPHEN TAB 325 MG TAB PO PRN (14:21)
[2023-05-29] MEDS: traZODone HCL 100 MG TAB PO PRN (21:17)
[2023-05-29] MEDS: DOXEPIN 10 MG CAP PO SCH (21:18)
[2023-05-29] MEDS: risperiDONE 2 MG TAB PO SCH (21:18)
[2023-05-30 04:22] VITALS: BP 105/58; PULSE 75; TEMP 96.5
[2023-05-30] MEDS: NICOTINE 14MG/24HR PATCH TRANSDERM SCH (09:17)
[2023-05-30] MEDS ORDERED: PALIPERIDONE IM 156 MG/ML SYG IM STA (12:06)
--- NOTE | 2023-05-30 12:10 | P.PN ---
Progress Note - Text Progress Note Date: 05/30/23 Interval History: Patient was seen wandering the hallways today and does have a one-to-one sitter. Patient was approached by singer songwriter to speak today. Patient was carrying a book with her. She appeared to be somewhat distracted and was attempting to talk to singer songwriter about her book however was mumbling at times. She continued to walk down the hallways and only answered minimal questions. Patient did not have much irritability and was somewhat directable. She apparently has not been sleeping through the night. At this time patient denies any suicidal or homical ideations, intent or plan. Patient denies any auditory, visual hallucinations. Patient has been taking her medications. Mental Status Exam: General Appearance: Patient appears to be fairly thin, walking the hallways, mildly improving hygiene and grooming, stated age is alert, somewhat cooperative, distracted. Patient appears to have improving hygiene and grooming. Behavior: Patient is seated without any agitated behavior. Somewhat cooperative. distracted Speech: Patient's speech is fluent and nonpressured. [place]. Mood/Affect: Denies any depression today, affect is constricted. Suicidality/Homicidality: Denies Perceptions: Patient denies any visual hallucinations and denies any auditory hallucinations Though content/process: [place], poverty of content. less cooperative. bizarre content Memory and concentration: Patient is alert and oriented to hospital name only, follows some commands, distracted Judgment and insight: poor/limited chronically IMPRESSIONS: Schizophrenia Nicotine dependence PLAN: -Patient is admitted under involuntary status to MHU for stabilization of psychiatric symptoms and safety. Patient has not signed adult voluntary form and medication consent and is placed in patient's chart. Patient is now on an [facility] for mental health treatment. -Medications : received Invega sustenna 234 mg IM on 05/27 with plan to give 156 mg second dose today on 05/30. d/c PO Risperdal. increase doxepin 25 mg qhs for sleep with prn trazodone for sleep -Zyprexa PRN for agitation/aggression -NRT - nicotine patch -SW on board for discharge planning. Encourage patient to participate in groups to work on coping skills. patient is now court ordered for mental health treatment, starting on 05/25/23. patient will likely go and stay with daughter upon discharge and once she is stabilized. upcoming family meeting with daughter on tuesday at 11 am to discuss care and plan going forward. will need to trans ition onto BLAKE to ensure compliance
[2023-05-30] MEDS: traZODone HCL 100 MG TAB PO PRN (22:56)
[2023-05-30] MEDS: DOXEPIN 25 MG CAP PO SCH (22:56)
[2023-05-31] MEDS: NICOTINE 14MG/24HR PATCH TRANSDERM SCH (09:54)
[2023-05-31] MEDS ORDERED: QUEtiapine 50 MG TAB PO PRN (11:27)
--- NOTE | 2023-05-31 11:31 | P.PN ---
Progress Note - Text Progress Note Date: 05/31/23 Interval History: Patient was seen wandering the hallways today and does not have a one-to-one s itter. Patient was approached by marketing writer to speak today. Patient was wandering the hallways and agreeable to speak briefly to marketing writer as she was walking. She knew that she was in a hospital today, states that she is doing okay did not report any complaints. She claims that she knows her full name. She appeared to be fairly distracted and did not want to answer what today's date was. she was mumbling at times. Patient did not have much irritability and was somewhat directable. She apparently slept better last night. At this time patient denies any suicidal or homical ideations, intent or plan. Patient denies any auditory, visual hallucinations. Patient has been taking her medications. Mental Status Exam: General Appearance: Patient appears to be fairly thin, walking the hallways, mildly improving hygiene and grooming, stated age is alert, somewhat cooperative, distracted. Patient appears to have improving hygiene and grooming. Behavior: Patient is seated without any agitated behavior. Somewhat cooperative. distracted, improving Speech: Patient's speech is fluent and nonpressured. [place]. Mood/Affect: Denies any depression today, affect is constricted. Suicidality/Homicidality: Denies Perceptions: Patient denies any visual hallucinations and denies any auditory hallucinations Though content/process: [place], poverty of content. less cooperative. bizarre content Memory and concentration: Patient is alert and oriented to hospital name only, follows some commands, distracted Judgment and insight: poor/limited chronically IMPRESSIONS: Schizophrenia Nicotine dependence PLAN: -Patient is admitted under involuntary status to MHU for stabilization of psychiatric symptoms and safety. Patient has not signed adult voluntary form and medication consent and is placed in patient's chart. Patient is now on an [facility] for mental health treatment. -Medications : received Invega sustenna 234 mg IM on 05/27 with plan to give 156 mg second dose given on 05/30, next dose of 156 mg IM will be due on 06/20. continue doxepin 25 mg qhs for sleep with prn trazodone for sleep. added melatonin 5 mg qhs for sleep. -seroquel and zyprexa PRN for agitation/aggression -NRT - nicotine patch -SW on board for discharge planning. Encourage patient to participate in groups to work on coping skills. patient is now court ordered for mental health treatment, starting on 05/25/23. patient will likely go and stay with daughter upon discharge and once she is stabilized. upcoming family meeting with daughter on tuesday at 11 am to discuss care and plan going forward. patient will likely be set for discharge tomorrow, she will be living with daughter.
[2023-05-31] MEDS ORDERED: MELATONIN 5 MG TABLET PO SCH (21:00)
[2023-05-31] MEDS: DOXEPIN 25 MG CAP PO SCH (22:59)
[2023-06-01] MEDS: NICOTINE 14MG/24HR PATCH TRANSDERM SCH (10:54)
--- NOTE | 2023-06-01 11:58 | P.DS ---
Providers Date of admission: 05/19/23 13:10 Attending physician: Unruly López MD Consults: 05/19/23 13:59 Consult Physician Routine Consulting Provider: Edgard Brewer Consult Reason/Comments: H & P and medical care Do you want consulting provider notified?: Yes Primary care physician: Stated None Hospital Course: : Patient is a 63-year-old female with a chronic history of schizoph aiden, currently living with her daughter did not show any major fluctuation in her day-to-day behavior and functioning as described below The patient was and one-to-one observation along with one of the nursing staff's Patient r is unable to participate in any meaningful conversation Staff reports that when she gets up that she wanders around in the state of confusion but has not been aggressive The patient was wandering and was coming out from the patient's room and was unable to state her own room and asked as to why she was here patient reports that it was something to do with her who is probably now in [place] When asked as to what she is doing here patient states that she was just going over there In general patient seems to have no insight with thought processes remained scattered concrete with paucity of thoughts She appeared to be fairly distracted and did not want to answer what today's date was. Following an excerpt from the assessment done previously which is included here for completeness ''' HPI: Patient presented to the hospital yesterday and was evaluated in the ER for mental health evaluation. Patient was petitioned by her daughter stating a patient with paranoid and illogical and delusional. Patient apparently has a chronic history of schizophrenia. According to ER report patient's apparently suddenly about few weeks ago and she moved in with her daughter however she is not able to take care of him her any longer. Apparently she has been threatening to hurt her daughter and also has been wandering into her granddaughter's room at nighttime. Patient received a Haldol and Ativan as a when necessary last night for agitation and psychosis. Patient apparently has been uncooperative with staff and mainly laying in her bed. Patient was seen by development writer today laying in bed. Patient Biller came into her room and attempted to speak with her. Patient was fairly uncooperative, only answered some questions. She knew that she was in "[facility]" however did not state what city she is in. She claims that she came to the hospital "harassed". She does not know today's date she was fairly resistant when asking about her name and date of . She reversed questions back at development writer. Very poor insight and judgment. Patient Biller attempted to speak with patient about medications and psychiatric history however patient refused to speak about it and answer questions. Denies any issues with sleep or appetite. Very poor impulse control and poor decision making. At this time patient denies any auditory or visual hallucinations. When patient was asked about her suicide or homicidal thoughts, she states "why are you asking me that". She denies using any recreational drugs. She was fairly poor historian and refused to answer any other questions related to her psychiatric history or social history. PAST PSYCHIATRIC HISTORY: Patient apparently has a chronic history of schizophrenia. Patient denies being on any psychiatric medications. Patient apparently used to be on psychiatric medications and receiving treatment at [facility] over her case was closed several years ago. MENTAL STATUS EXAM: From the previous day at the time of admission General Appearance: Patient was wandering down the hallway and coming out of it patient's room and appears to be disoriented poor hygiene and grooming, stated age is alert, uncooperative irritable. Patient appears to have poor hygiene and grooming. Behavior: Patient is wandering without any agitated behavior. Uncooperative. Evasive. Speech: Patient's speech is fluent and nonpressured. [place]. Mood/Affect: [place] Suicidality/Homicidality: Denies Perceptions: Patient denies any visual hallucinations and denies any auditory hallucinations Though content/process: [place], poverty of content. Uncooperative. Memory and concentration: Patient is alert and oriented to hospital name only, any uncooperative with the rest of the exam Judgment and insight: poor chronically IMPRESSIONS: Schizophrenia Rule out major neurocognitive disorder unspecified Nicotine dependence PLAN: -Patient is admitted under involuntary status to MHU for stabilization of psychiatric symptoms and safety. Patient has not signed adult voluntary form and medication consent and is placed in patient's chart. Patient is now on an [facility] for mental health treatment. -Medications : received Invega sustenna 234 mg IM on 05/27 156 mg second dose given on 05/30, next dose of 156 mg IM will be due on 06/20. continue doxepin 25 mg qhs for sleep with prn trazodone for sleep. added melatonin 5 mg qhs for sleep. -seroquel and zyprexa PRN for agitation/aggression -NRT - nicotine patch - on board for discharge planning. Encourage patient to participate in groups to work on coping skills. patient is now court ordered for mental health treatment, starting on 05/25/23. patient will go and stay with daughter upon discharge and once she is stabilized. patient is set for discharge today, she will be living with daughter. with outpatient follow-up as directed Boo Valles M.D. Plan - Discharge Summary New Discharge Prescriptions: No Action No Known Home Medications Discharge Medication List No Known Home Medications 05/19/23 [History] Follow up Appointment(s)/Referral(s): [facility] [place] [Outside] - 06/03/23 9:30 am (with Daphnie Jennings) None,Stated [Primary Care Provider] - 1-2 days Activity/Diet/Wound Care/Special Instructions: Avoid the use of street drugs and alcohol. Take all medications as prescribed. When you are in need of refills on your medications, please contact your medical provider and/or outpatient psychiatrist/provider to have this done. Please go to your scheduled outpatient appointment for aftercare treatment. If symptoms return or become worse, call the crisis line at and/or go to the nearest emergency room for evaluation. National Suicide Hotline 378.
== END 2023-06-01 15:50 | disposition home or self-care (01) | DRG 750 ==
LOC: EC 18:17 → 3MHU 05-19 13:10
PROVIDERS: ADMIT Psychiatry & Neurology Psychiatry; ATTEND Psychiatry & Neurology Psychiatry
DX: F20.9 Schizophrenia, unspecified (principal); F17.210 Nicotine dependence, cigarettes, uncomplicated; R45.1 Restlessness and agitation; J06.9 Acute upper respiratory infection, unspecified; Z63.4 Disappearance and death of family member; Z91.83 Wandering in diseases classified elsewhere; Z20.822 Contact with and (suspected) exposure to COVID-19; Z71.3 Dietary counseling and surveillance; Z88.0 Allergy status to penicillin
CPT/HCPCS: 36415; 70450; 71046; 80053; 80061; 80306; 81003; 82075; 83036; 84443; 85025; 87636; 96372; 99285

== ENCOUNTER 2024-07-21 22:43 | Inpatient (IN) | payer MEDICARE, OTHER ==
--- NOTE | 2024-07-21 23:22 | ED ---
General Adult HPI - General Chief complaint: Fall Stated complaint: Fall Time Seen by Provider: 07/21/24 23:01 Source: EMS, RN notes reviewed Mode of arrival: EMS Limitations: altered mental status - History of Present Illness Initial comments: This is a 64-year-old female with severe neurocognitive disorder and schizophrenia presenting to the emergency department via EMS from adult long- term care facility from a fall. It is reported that patient was in the dining room when a staff member heard the patient fall and immediately went to check on her. There was no reported loss of consciousness at the time of the injury. It is uncertain if patient hit her head during the fall. It is reported that patient is having left hip pain. She is on eliquis for history of PE. History is provided from EMS report and patient's daughter at bedside due to patient's altered mental status. Daughter states that patient is currently at her baseline cognitively. - Related Data Home Medications Medication Instructions Recorded Confirmed Acetaminophen Tab [Tylenol Tab] 500 - 1,000 mg PO Q8H PRN 07/22/24 07/22/24 Apixaban [Eliquis] 5 mg PO BID@0800,199907/22/24 07/22/24 Cetirizine HCl [Zyrtec] 10 mg PO DAILY PRN 07/22/24 07/22/24 LORazepam [Ativan] 0.5 mg PO TID@08,14,07/22/24 07/22/24 Melatonin 5 mg PO HS PRN 07/22/24 07/22/24 Melatonin 10 mg PO HS@199907/22/24 07/22/24 Multivitamins, Thera [Multivitamin 1 tab PO DAILY@0807/22/24 07/22/24 (formulary)] Sennosides/Docusate Sodium [Senna 2 tab PO HS@199907/22/24 07/22/24 Plus 8.6-50 mg Softgel] Sodium Chloride Tab 1 gm PO DAILY@0800 07/22/24 07/22/24 Vitamin B-12 5000mcg Liquid 5,000 mcg PO DAILY@0800 07/22/24 07/22/24 risperiDONE ORAL SOLN [RisperDAL 1 mg PO HS@199907/22/24 07/22/24 ORAL SOLN] Allergies Allergy/AdvReac Type Severity Reaction Status Date / Time Penicillins Allergy Unknown Verified 07/22/24 10:41 Review of Systems ROS Statement: Those systems with pertinent positive or pertinent negative responses have been documented in the HPI. ROS Other: All systems not noted in ROS Statement are negative. Past Medical History Past Medical History: Hypertension History of Any Multi-Drug Resistant Organisms: None Reported Past Surgical History: No Surgical Hx Reported Past Psychological History: No Psychological Hx Reported Smoking Status: Current every day smoker Past Alcohol Use History: None Reported Past Drug Use History: None Reported General Exam Limitations: altered mental status Eye exam: Present: normal appearance, PERRL, EOMI. Absent: scleral icterus, conjunctival injection, periorbital swelling ENT exam: Present: normal exam, mucous membranes moist Neck exam: Present: normal inspection. Absent: tenderness, meningismus, lymphadenopathy Respiratory exam: Present: normal lung sounds bilaterally. Absent: respiratory distress, wheezes, rales, rhonchi, stridor Cardiovascular Exam: Present: regular rate, normal rhythm, normal heart sounds. Absent: systolic murmur, diastolic murmur, rubs, gallop, clicks GI/Abdominal exam: Present: soft, normal bowel sounds. Absent: distended, tenderness, guarding, rebound, rigid Extremities exam: Present: normal inspection, full ROM, tenderness (left and right hip), normal capillary refill. Absent: pedal edema, joint swelling, calf tenderness Back exam: Present: normal inspection Skin exam: Present: warm, dry, intact, normal color. Absent: rash Course Vital Signs 07/21/24 07/22/24 22:48 04:02 Temperature 98.1 F 97.4 F L Pulse Rate 70 64 Respiratory 17 17 Rate Blood Pressure 122/77 129/77 O2 Sat by Pulse 96 96 Oximetry Medical Decision Making - Medical Decision Making Was pt. sent in by a medical professional or institution (, PA, PARK INTERPRETER, urgent care, hospital, or halfway...) When possible be specific @ -No Did you speak to anyone other than the patient for history (EMS, parent, family, police, friend...)? What history was obtained from this source @ -Spoke to patient's daughter at bedside for majority of history. See HPI for further details. Did you review nursing and triage notes (agree or disagree)? Why? @ -I reviewed and agree with nursing and triage notes Were old charts reviewed (outside hosp., previous admission, EMS record, old EKG, old radiological studies, urgent care reports/EKG's, halfway records)? Report findings @ -No old charts were reviewed Differential Diagnosis (chest pain, altered mental status, abdominal pain women, abdominal pain men, vaginal bleeding, weakness, fever, dyspnea, syncope, headache, dizziness, GI bleed, back pain, seizure, CVA, palpatations, mental health, musculoskeletal)? @ -Differential Syncope: Valvular disease, hypertrophic cardiomyopathy, pulmonary embolism, tamponade, tachycardia, bradycardia, MD, hypovolemia, hemorrhage, dissection, anemia, intracranial hemorrhage, seizure, hypoglycemia, carbon monoxide poisoning, this is not meant to be an all-inclusive list. EKG interpreted by me (3pts min.). @ -EKG completed at 2312 sinus rhythm with a ventricular rate of 72, MT interval 135, QRS 90, QTc 444. X-rays interpreted by me (1pt min.). @ -Chest x-ray no acute cardiopulmonary process or disease CT interpreted by me (1pt min.). @ -CT of the brain and C-spine without contrast reveals no acute intracranial or cervical spine process CT abdomen pelvis without contrast remarkable for a comminuted minimally displaced right superior and inferior pubic rami fracture with associated posttraumatic soft tissue inflammatory changes U/S interpreted by me (1pt. min.). @ -None done What testing was considered but not performed or refused? (CT, X-rays, U/S, labs)? Why? @ -None What meds were considered but not given or refused? Why? @ -None Did you discuss the management of the patient with other professionals (professionals review of systems i.e. , PA, PARK INTERPRETER, lab, RT, psych nurse, social science analyst, assistant chief train dispatcher, teacher, flight communications officer, field nurse case manager)? Give summary @ -Spoke to on-call documentation specialist, Dr. Dejesus, referred to the findings concerning for a superior inferior pubic rami fracture. Patient is accepted for admission with general medicine on consult. Was smoking cessation discussed for >3mins.? @ -No Was critical care preformed (if so, how long)? @ -No Were there social determinants of health that impacted care today? How? (Homelessness, low income, unemployed, alcoholism, drug addiction, transportation, low edu. Level, literacy, decrease access to med. care, residential, rehab)? @ -No Was there de-escalation of care discussed even if they declined (Discuss DNR or withdrawal of care, Hospice)? DNR status @ -No What co-morbidities impacted this encounter? (DM, HTN, Smoking, COPD, CAD, Cancer, CVA, ARF, Chemo, Hep., AIDS, mental health diagnosis, sleep apnea, morbid obesity)? @ -None Was patient admitted / discharged? Hospital course, mention meds given and route, prescriptions, significant lab abnormalities, going to OR and other pertinent info. @ -Admitted. 64-year-old female with fall. Patient's history is obtained from daughter at bedside and EMS report as patient does have severe neurocognitive disorder. Vitals are stable. Patient's labs are remarkable for Leukocytosis of 17, elevated neutrophils of 13.8, remaining laboratory studies unremarkable. At this time straight catheterization is ordered with concern for leukocytosis of unknown source. Urinalysis remarkable for infection including white blood cells white blood cell clumps and leukocyte esterase. On reevaluation, daughter at [facility] states that patient is having difficulty with ambulation that is markedly different from her baseline and she is concerned that patient to palpation at this time CT of the abdomen pelvis is ordered for further evaluation. CT is remarkable for pubic rami fracture. Patient will be admitted to orthopedics with general medicine on consult for further evaluation. She is started on Rocephin for urinary tract infection. Case discussed with Dr. Espana Undiagnosed new problem with uncertain prognosis? @ -No Drug Therapy requiring intensive monitoring for toxicity (Heparin, Nitro, Insulin, Cardizem)? @ -No Were any procedures done? @ -No Diagnosis/symptom? @ -Urinary tract infection, pubic rami fracture Acute, or Chronic, or Acute on Chronic? @ -Acute Uncomplicated (without systemic symptoms) or Complicated (systemic symptoms)? @ -Uncomplicated Side effects of treatment? @ -No Exacerbation, Progression, or Severe Exacerbation? @ -No Poses a threat to life or bodily function? How? (Chest pain, USA, MD, pneumonia, PE, COPD, DKA, ARF, appy, cholecystitis, CVA, Diverticulitis, Homicidal, Suicidal, threat to staff... and all critical care pts) @ -No - Lab Data Result diagrams: 07/22/24 10:34 12/01/24 10:34 Lab Results 07/22/24 07/22/24 07/22/24 Range/Units 00:00 00:00 00:00 WBC 17.0 H (3.8-10.6) k/uL RBC 3.93 (3.80-5.40) m/uL Hgb 12.1 (11.4-16.0) gm/dL Hct 37.2 (34.0-46.0) % MCV 94.7 (80.0-100.0) fL MCH 30.8 (25.0-35.0) pg MCHC 32.5 (31.0-37.0) g/dL RDW 12.9 (11.5-15.5) % Plt Count 314 (150-450) k/uL MPV 7.3 Neutrophils % 81 % Lymphocytes % 11 % Monocytes % 6 % Eosinophils % 0 % Basophils % 0 % Neutrophils # 13.8 H (1.3-7.7) k/uL Lymphocytes # 1.8 (1.0-4.8) k/uL Monocytes # 1.1 H (0-1.0) k/uL Eosinophils # 0.1 (0-0.7) k/uL Basophils # 0.0 (0-0.2) k/uL PT 10.5 (10.0-12.5) sec INR 1.0 (<1.2) APTT 25.0 (22.0-30.0) sec Sodium 137 (137-145) mmol/L Potassium 3.9 (3.5-5.1) mmol/L Chloride 104 (98-107) mmol/L Carbon Dioxide 26 (22-30) mmol/L Anion Gap 7 mmol/L BUN 16 (7-17) mg/dL Creatinine 0.60 (0.52-1.04) mg/dL Est GFR (CKD-EPI)AfAm >90 (>60 ml/min/1.73 sqM) Est GFR (CKD-EPI)NonAf >90 (>60 ml/min/1.73 sqM) Glucose 143 H (74-99) mg/dL Calcium 9.4 (8.4-10.2) mg/dL Magnesium 1.7 (1.6-2.3) mg/dL Total Bilirubin 0.4 (0.2-1.3) mg/dL AST 27 (14-36) U/L ALT 22 (4-34) U/L Alkaline Phosphatase 65 (38-126) U/L Creatine Kinase 99 (30-135) U/L Troponin I (0.000-0.034) ng/mL Total Protein 6.9 (6.3-8.2) g/dL Albumin 4.2 (3.5-5.0) g/dL Urine Color Urine Appearance (Clear) Urine pH (5.0-8.0) Ur Specific [place] (1.001-1.035) Urine Protein (Negative) Urine Glucose (UA) (Negative) Urine Ketones (Negative) Urine Blood (Negative) Urine Nitrite (Negative) Urine Bilirubin (Negative) Urine Urobilinogen (<2.0) mg/dL Ur Leukocyte Esterase (Negative) Urine RBC (0-5) /hpf Urine WBC (0-5) /hpf Urine WBC Clumps (None) /hpf Ur Squamous Epith Cells (0-4) /hpf Urine Bacteria (None) /hpf Hyaline Casts (0-2) /lpf Urine Mucus (None) /hpf 07/22/24 07/22/24 Range/Units 00:00 01:15 WBC (3.8-10.6) k/uL RBC (3.80-5.40) m/uL Hgb (11.4-16.0) gm/dL Hct (34.0-46.0) % MCV (80.0-100.0) fL MCH (25.0-35.0) pg MCHC (31.0-37.0) g/dL RDW (11.5-15.5) % Plt Count (150-450) k/uL MPV Neutrophils % % Lymphocytes % % Monocytes % % Eosinophils % % Basophils % % Neutrophils # (1.3-7.7) k/uL Lymphocytes # (1.0-4.8) k/uL Monocytes # (0-1.0) k/uL Eosinophils # (0-0.7) k/uL Basophils # (0-0.2) k/uL PT (10.0-12.5) sec INR (<1.2) APTT (22.0-30.0) sec Sodium (137-145) mmol/L Potassium (3.5-5.1) mmol/L Chloride (98-107) mmol/L Carbon Dioxide (22-30) mmol/L Anion Gap mmol/L BUN (7-17) mg/dL Creatinine (0.52-1.04) mg/dL Est GFR (CKD-EPI)AfAm (>60 ml/min/1.73 sqM) Est GFR (CKD-EPI)NonAf (>60 ml/min/1.73 sqM) Glucose (74-99) mg/dL Calcium (8.4-10.2) mg/dL Magnesium (1.6-2.3) mg/dL Total Bilirubin (0.2-1.3) mg/dL AST (14-36) U/L ALT (4-34) U/L Alkaline Phosphatase (38-126) U/L Creatine Kinase (30-135) U/L Troponin I <0.012 (0.000-0.034) ng/mL Total Protein (6.3-8.2) g/dL Albumin (3.5-5.0) g/dL Urine Color Yellow Urine Appearance Cloudy H (Clear) Urine pH 6.0 (5.0-8.0) Ur Specific [place] 1.026 (1.001-1.035) Urine Protein Trace H (Negative) Urine Glucose (UA) Negative (Negative) Urine Ketones Negative (Negative) Urine Blood Negative (Negative) Urine Nitrite Negative (Negative) Urine Bilirubin Negative (Negative) Urine Urobilinogen <2.0 (<2.0) mg/dL Ur Leukocyte Esterase Moderate H (Negative) Urine RBC 2 (0-5) /hpf Urine WBC 20 H (0-5) /hpf Urine WBC Clumps Rare H (None) /hpf Ur Squamous Epith Cells 12 H (0-4) /hpf Urine Bacteria Rare H (None) /hpf Hyaline Casts 1 (0-2) /lpf Urine Mucus Moderate H (None) /hpf Disposition Clinical Impression: Fracture of pubic ramus, UTI (urinary tract infection) Disposition: ADMITTED IP TO THIS [facility] Condition: Stable Decision to Admit Reason: Admit from EC Decision Date: 07/22/24 Decision Time: 03:14
--- NOTE | 2024-07-22 00:10 | CT ---
EXAM: CT Head Without Intravenous Contrast CLINICAL HISTORY: ITS.REASON CT Reason: fall, on thinners TECHNIQUE: Axial computed tomography images of the head/brain without intravenous contrast. CTDI is 45.2 mGy and DLP is 1072 mGy-cm. This CT exam was performed using one or more of the following dose reduction techniques: automated exposure control, adjustment of the mA and/or kV according to patient size, and/or use of iterative reconstruction technique. COMPARISON: No relevant prior studies available. FINDINGS: Brain: Mild ischemic microangiopathy. Age appropriate cerebral volume loss. No hemorrhage. Ventricles: Unremarkable. No ventriculomegaly. Bones/joints: Unremarkable. No acute fracture. Soft tissues: Unremarkable. Sinuses: Unremarkable as visualized. No acute sinusitis. Mastoid air cells: Unremarkable as visualized. No mastoid effusion. IMPRESSION: No acute findings in the head/brain. EXAM: CT Cervical Spine Without Intravenous Contrast CLINICAL HISTORY: ITS.REASON CT Reason: fall, on thinners TECHNIQUE: Axial computed tomography images of the cervical spine without intravenous contrast. CTDI is 8.3 mGy and DLP is 247.7 mGy-cm. This CT exam was performed using one or more of the following dose reduction techniques: automated exposure control, adjustment of the mA and/or kV according to patient size, and/or use of iterative reconstruction technique. COMPARISON: No relevant prior studies available. FINDINGS: Vertebrae: Unremarkable. No acute fracture. Discs/spinal canal/neural foramina: No acute findings. No spinal canal stenosis. Soft tissues: Unremarkable. IMPRESSION: Normal cervical spine CT.
[2024-07-22 00:31] LABS: Basophils % (A) 0 %; Eosinophils # (A) 0.1 k/uL (0-0.7); Eosinophils % (A) 0 %; HCT 37.2 % (34.0-46.0); HGB 12.1 gm/dL (11.4-16.0); Lymphocytes # (A) 1.8 k/uL (1.0-4.8); Lymphocytes % (A) 11 %; MCH 30.8 pg (25.0-35.0); MCHC 32.5 g/dL (31.0-37.0); MCV 94.7 fL (80.0-100.0); Mean Platelet Volume 7.3; Monocytes # (A) 1.1 k/uL (0-1.0); Monocytes % (A) 6 %; Neutrophils # (A) 13.8 k/uL (1.3-7.7); Neutrophils % (A) 81 %; Platelet Count 314 k/uL (150-450); RBC 3.93 m/uL (3.80-5.40); RDW 12.9 % (11.5-15.5)
--- NOTE | 2024-07-22 00:35 | XR ---
EXAM: XR Pelvis, 1 or 2 Views CLINICAL HISTORY: ITS.REASON XR Reason: fall, pain TECHNIQUE: Frontal view of the pelvis. COMPARISON: No relevant prior studies available. FINDINGS: Bones/joints: Unremarkable. No acute fracture. No dislocation. Soft tissues: Unremarkable. IMPRESSION: Normal pelvis x-ray.
[2024-07-22 00:48] LABS: Prothrombin Time 10.5 sec (10.0-12.5)
[2024-07-22 00:53] LABS: ALT 22 U/L (4-34); AST 27 U/L (14-36); African American GFR (CKD) >90 (>60 ml/min/1.73 sqM); Albumin 4.2 g/dL (3.5-5.0); Alkaline Phosphatase 65 U/L (38-126); Anion Gap 7 mmol/L; Blood Urea Nitrogen 16 mg/dL (7-17); Calcium 9.4 mg/dL (8.4-10.2); Carbon Dioxide 26 mmol/L (22-30); Chloride 104 mmol/L (98-107); Creatine Kinase 99 U/L (30-135); Glucose 143 mg/dL (74-99); Magnesium 1.7 mg/dL (1.6-2.3); Non-African American GFR(CKD) >90 (>60 ml/min/1.73 sqM); Potassium 3.9 mmol/L (3.5-5.1); Sodium 137 mmol/L (137-145); Total Bilirubin 0.4 mg/dL (0.2-1.3); Total Protein 6.9 g/dL (6.3-8.2)
[2024-07-22 01:34] LABS: Appearance,Urine Cloudy (Clear); Bacteria,Urine Rare /hpf; Bilirubin,Urine Negative (Negative); Blood,Urine Negative (Negative); Color,Urine Yellow; Glucose,Urine (UA) Negative (Negative); Hyaline Casts,Urine 1 /lpf (0-2); Ketones,Urine Negative (Negative); Leukocyte Esterase,Urine Moderate (Negative); Mucus,Urine Moderate /hpf; Nitrite,Urine Negative (Negative); Protein,Urine Trace (Negative); RBC,Urine 2 /hpf (0-5); Specific Gravity,Urine 1.026 (1.001-1.035); Squamous Epithelial Cell,Urine 12 /hpf (0-4); Urobilinogen,Urine <2.0 mg/dL (<2.0); WBC,Urine 20 /hpf (0-5)
--- NOTE | 2024-07-22 02:53 | CT ---
EXAM: CT Abdomen and Pelvis Without Intravenous Contrast CLINICAL HISTORY: ITS.REASON CT Reason: ab pain TECHNIQUE: Axial computed tomography images of the abdomen and pelvis without intravenous contrast. CTDI is 10.9 mGy and DLP is 635.4 mGy-cm. This CT exam was performed using one or more of the following dose reduction techniques: automated exposure control, adjustment of the mA and/or kV according to patient size, and/or use of iterative reconstruction technique. COMPARISON: No relevant prior studies available. FINDINGS: Lung bases: Unremarkable. No mass. No consolidation. ABDOMEN: Liver: Unremarkable. Gallbladder and bile ducts: Unremarkable. No calcified stones. No ductal dilation. Pancreas: Unremarkable. No ductal dilation. Spleen: Unremarkable. No splenomegaly. Adrenals: Unremarkable. No mass. Kidneys and ureters: Unremarkable. No obstructing stones. No hydronephrosis. Stomach and bowel: large amount of stool within the colon. No mucosal thickening. PELVIS: Appendix: No findings to suggest acute appendicitis. Bladder: Unremarkable. No stones. Reproductive: Unremarkable as visualized. ABDOMEN and PELVIS: Intraperitoneal space: Unremarkable. No free air. No significant fluid collection. Bones/joints: Comminuted minimally displaced right superior pubic ramus fracture. Comminuted minimally displaced right inferior pubic ramus fracture. Subtle soft tissue inflammatory changes about the pubic symphysis likely posttraumatic in nature. No dislocation. Soft tissues: Unremarkable. Vasculature: Unremarkable. No abdominal aortic aneurysm. Lymph nodes: Unremarkable. No enlarged lymph nodes. IMPRESSION: Comminuted minimally displaced right superior and inferior pubic rami fractures with associated posttraumatic soft tissue inflammatory changes.. .
[2024-07-22] MEDS ORDERED: MORPHINE SULFATE 4 MG/ML SYRINGE IV PRN (03:14)
[2024-07-22] MEDS ORDERED: KETOROLAC 15 MG/ML 1 ML VIAL IVP PRN (03:14)
[2024-07-22] MEDS ORDERED: IBUPROFEN 400 MG TAB PO PRN (03:14)
[2024-07-22] MEDS ORDERED: NALOXONE 0.4 MG/ML 1 ML VIAL IV PRN (03:14)
[2024-07-22] MEDS: cefTRIAXone 1,000 MG VIAL (IM USE) IM STA (03:56)
--- NOTE | 2024-07-22 04:08 | XR ---
EXAM: XR Chest, 1 View CLINICAL HISTORY: ITS.REASON XR Reason: fall, possible syncope TECHNIQUE: Frontal view of the chest. COMPARISON: 05/18/2023 FINDINGS: Lungs: Unremarkable. No consolidation. Pleural space: Unremarkable. No pneumothorax. Heart: Unremarkable. No cardiomegaly. Mediastinum: Unremarkable. Normal mediastinal contour. Bones/joints: Unremarkable. No acute fracture. IMPRESSION: Normal chest x-ray.
[2024-07-22] MEDS: cefTRIAXone IN SWFI 1,000 MG/10 ML SYRINGE IVP STA (04:13)
[2024-07-22] MEDS: MORPHINE SULFATE 4 MG/ML SYRINGE IVP PRN (04:14)
[2024-07-22] MEDS: FAMOTIDINE 20 MG TAB PO SCH (08:26)
[2024-07-22 11:02] LABS: Basophils % (A) 0 %; Eosinophils % (A) 0 %; HCT 34.3 % (34.0-46.0); HGB 10.7 gm/dL (11.4-16.0); Lymphocytes # (A) 1.4 k/uL (1.0-4.8); Lymphocytes % (A) 12 %; MCH 30.2 pg (25.0-35.0); MCHC 31.3 g/dL (31.0-37.0); MCV 96.6 fL (80.0-100.0); Mean Platelet Volume 7.5; Monocytes % (A) 8 %; Neutrophils # (A) 9.4 k/uL (1.3-7.7); Neutrophils % (A) 77 %; Platelet Count 277 k/uL (150-450); RBC 3.55 m/uL (3.80-5.40); RDW 13.3 % (11.5-15.5); WBC 12.1 k/uL (3.8-10.6)
[2024-07-22 11:05] LABS: African American GFR (CKD) >90 (>60 ml/min/1.73 sqM); Anion Gap 7 mmol/L; Blood Urea Nitrogen 12 mg/dL (7-17); Carbon Dioxide 26 mmol/L (22-30); Chloride 103 mmol/L (98-107); Glucose 116 mg/dL (74-99); Non-African American GFR(CKD) >90 (>60 ml/min/1.73 sqM); Potassium 3.9 mmol/L (3.5-5.1); Sodium 136 mmol/L (137-145)
[2024-07-22] MEDS ORDERED: MELATONIN 5 MG TABLET PO PRN (11:39)
--- NOTE | 2024-07-22 11:41 | P.CONS ---
History of Present Illness - History of Present Illness This is a pleasant 64 years old female with past medical history of schizophr enia, neurocognitive disorder, she lives in an adult foster care. Patient at baseline is nonverbal and does not follow command. So information was obtained from the records, staff and I called her daughter Radha at the number in the file which gave me the above information. As per daughter patient was in the living room watching TV of [employer] when the staff heard something dropping and when they went she was on the floor before they brought her to the hospital. At baseline patient is restless, she cannot sit still if she is in pain as per daughter, but even without pain she is restless. Currently she is lying in bed awake alert, does not follow commands. She she withdraws somewhat to painful stimuli's in all extremities, no asymmetry noted. She is afebrile, vitals stable. Labs showing leukocytosis 17,000 came back to 12,000 with antibiotic Further workup showing possible UTI with urine analysis Growing moderate leukocyte esterase and WBC is 20 H, rest of labs including BMP and liver enzymes were unremarkable. Chest x-ray is normal CT of the abdomen and pelvis showing comminuted minimally displaced right superior and inferior pubic rami fractures with associated posttraumatic soft tissue inflammatory changes. CT of the brain is negative for acute process. CT of the cervical spine showing no acute fracture or dislocation Review of Systems ROS unobtainable: due to mental status Past Medical History Past Medical History: COPD, Dementia, Hypertension, Pulmonary Embolus (PE) Additional Past Medical History / Comment(s): schizophrenia with neurologic disorder, History of Any Multi-Drug Resistant Organisms: None Reported Past Surgical History: No Surgical Hx Reported Past Anesthesia/Blood Transfusion Reactions: No Reported Reaction Past Psychological History: Depression, Schizophrenia Smoking Status: Former smoker Past Alcohol Use History: None Reported Past Drug Use History: None Reported Medications and Allergies Home Medications Medication Instructions Recorded Confirmed Type Acetaminophen Tab [Tylenol Tab] 500 - 1,000 mg PO Q8H PRN 07/22/24 07/22/24 History Apixaban [Eliquis] 5 mg PO BID@0800,199907/22/24 07/22/24 History Cetirizine HCl [Zyrtec] 10 mg PO DAILY PRN 07/22/24 07/22/24 History LORazepam [Ativan] 0.5 mg PO TID@08,14,20 07/22/24 07/22/24 History Melatonin 5 mg PO HS PRN 07/22/24 07/22/24 History Melatonin 10 mg PO HS@199907/22/24 07/22/24 History Multivitamins, Thera [Multivitamin 1 tab PO DAILY@0800 07/22/24 07/22/24 History (formulary)] Sennosides/Docusate Sodium [Senna 2 tab PO HS@199907/22/24 07/22/24 History Plus 8.6-50 mg Softgel] Sodium Chloride Tab 1 gm PO DAILY@0807/22/24 07/22/24 History Vitamin B-12 5000mcg Liquid 5,000 mcg PO DAILY@79907/22/24 07/22/24 History risperiDONE ORAL SOLN [RisperDAL 1 mg PO HS@199907/22/24 07/22/24 History ORAL SOLN] Allergies Allergy/AdvReac Type Severity Reaction Status Date / Time Penicillins Allergy Unknown Verified 07/22/24 10:41 Physical Exam Vitals: Vital Signs Temp Pulse Pulse Resp BP BP Pulse Ox 07/22/24 08:05 97.6 F 69 16 106/45 92 L 07/22/24 04:02 97.4 F L 64 17 129/77 96 07/21/24 22:48 98.1 F 70 17 122/77 96 Intake and Output 07/21/24 07/22/24 07/22/24 22:59 06:59 14:59 Other: Weight 60.781 kg 70.76 kg -GENERAL: The patient is awake, nonverbal, does not follow commands HEENT: Pupils are round and equally reacting to light. EOMI. No scleral icterus. No conjunctival pallor. Normocephalic, atraumatic. No pharyngeal erythema. No thyromegaly. CARDIOVASCULAR: S1 and S2 present. No murmurs, rubs, or gallops. PULMONARY: Chest is clear to auscultation, no wheezing , no crackles. ABDOMEN: Soft, nontender, nondistended, normoactive bowel sounds. No palpable organomegaly. MUSCULOSKELETAL: No joint swelling or deformity. EXTREMITIES: No cyanosis, clubbing, or pedal edema. -NEUROLOGICAL: Gross neurological examination did not reveal any focal deficits. Examination is limited by patient cognitive dysfunction and infection and fracture SKIN: No rashes. no petechiae. Results CBC & Chem 7: 07/22/24 10:34 07/22/24 10:34 Labs: Abnormal Lab Results - Last 24 Hours (Table) 07/22/24 07/22/24 07/22/24 Range/Units 00:00 00:00 01:15 WBC 17.0 H (3.8-10.6) k/uL RBC (3.80-5.40) m/uL Hgb (11.4-16.0) gm/dL Neutrophils # 13.8 H (1.3-7.7) k/uL Monocytes # 1.1 H (0-1.0) k/uL Sodium (137-145) mmol/L Glucose 143 H (74-99) mg/dL Urine Appearance Cloudy H (Clear) Urine Protein Trace H (Negative) Ur Leukocyte Esterase Moderate H (Negative) Urine WBC 20 H (0-5) /hpf Urine WBC Clumps Rare H (None) /hpf Ur Squamous Epith Cells 12 H (0-4) /hpf Urine Bacteria Rare H (None) /hpf Urine Mucus Moderate H (None) /hpf 07/22/24 07/22/24 Range/Units 10:34 10:34 WBC 12.1 H (3.8-10.6) k/uL RBC 3.55 L (3.80-5.40) m/uL Hgb 10.7 L (11.4-16.0) gm/dL Neutrophils # 9.4 H (1.3-7.7) k/uL Monocytes # (0-1.0) k/uL Sodium 136 L (137-145) mmol/L Glucose 116 H (74-99) mg/dL Urine Appearance (Clear) Urine Protein (Negative) Ur Leukocyte Esterase (Negative) Urine WBC (0-5) /hpf Urine WBC Clumps (None) /hpf Ur Squamous Epith Cells (0-4) /hpf Urine Bacteria (None) /hpf Urine Mucus (None) /hpf Assessment and Plan Assessment: Fall at home with no reported syncope Traumatic injury with CT showing comminuted minimally displaced right superior and inferior pubic rami fractures with associated posttraumatic soft tissue inflammatory changes Acute urinary tract infection with leukocytosis, currently improving Schizophrenia Neurocognitive dysfunction, patient is nonverbal, noncommunicative and does not follow commands at baseline. Usually she is restless. Plan: Continue ceftriaxone Follow-up urine culture Monitor for any signs of fever, leukocyte count. Monitor for any new neurodeficit. Management of the fracture as per primary [facility] team Continue with neurocheck for 24 hours History of pulmonary embolism. On Eliquis which was resumed Resume Eliquis Resume psych medication GI prophylaxis and DVT prophylaxis Prognosis is guarded
[2024-07-22] MEDS: LORazepam 0.5 MG TAB PO SCH (15:12)
[2024-07-22] MEDS: APIXABAN 5 MG TAB PO SCH (19:46)
[2024-07-22] MEDS: SENNOSIDES-DOCUSATE SODIUM 1 EACH TAB PO SCH (19:47)
[2024-07-22] MEDS: risperiDONE 1 MG TAB PO SCH (19:47)
--- NOTE | 2024-07-22 20:25 | P.HPOR ---
History of Present Illness H&P Date: 07/22/24 Chief Complaint: Pubic Rami fractures Seen at bedside today. NAD. She doesn't coomunicate much verbally. History is through nurse and documentation HPI: This is a 64-year-old female with severe neurocognitive disorder and schizophrenia presenting to the emergency department via EMS from adult long- term care facility from a fall. It is reported that patient was in the dining room when a staff member heard the patient fall and immediately went to check on her. There was no reported loss of consciousness at the time of the injury. It is uncertain if patient hit her head during the fall. It is reported that patient is having left hip pain. She is on eliquis for history of PE. History is provided from EMS report and patient's daughter at bedside due to patient's a ltered mental status. Daughter states that patient is currently at her baseline cognitively. Review of Systems ROS unobtainable: due to mental status Past Medical History Past Medical History: COPD, Dementia, Hypertension, Pulmonary Embolus (PE) Additional Past Medical History / Comment(s): schizophrenia with neurologic disorder, History of Any Multi-Drug Resistant Organisms: None Reported Past Surgical History: No Surgical Hx Reported Past Anesthesia/Blood Transfusion Reactions: No Reported Reaction Past Psychological History: Depression, Schizophrenia Smoking Status: Former smoker Past Alcohol Use History: None Reported Past Drug Use History: None Reported Medications and Allergies Home Medications Medication Instructions Recorded Confirmed Type Acetaminophen Tab [Tylenol Tab] 500 - 1,000 mg PO Q8H PRN 07/22/24 07/22/24 History Apixaban [Eliquis] 5 mg PO BID@0800,199907/22/24 07/22/24 History Cetirizine HCl [Zyrtec] 10 mg PO DAILY PRN 07/22/24 07/22/24 History LORazepam [Ativan] 0.5 mg PO TID@08,14,20 07/22/24 07/22/24 History Melatonin 5 mg PO HS PRN 07/22/24 07/22/24 History Melatonin 10 mg PO HS@199907/22/24 07/22/24 History Multivitamins, Thera [Multivitamin 1 tab PO DAILY@0800 07/22/24 07/22/24 History (formulary)] Sennosides/Docusate Sodium [Senna 2 tab PO HS@199907/22/24 07/22/24 History Plus 8.6-50 mg Softgel] Sodium Chloride Tab 1 gm PO DAILY@0807/22/24 07/22/24 History Vitamin B-12 5000mcg Liquid 5,000 mcg PO DAILY@0807/22/24 07/22/24 History risperiDONE ORAL SOLN [RisperDAL 1 mg PO HS@199907/22/24 07/22/24 History ORAL SOLN] Allergies Allergy/AdvReac Type Severity Reaction Status Date / Time Penicillins Allergy Unknown Verified 07/22/24 10:41 Physical Examination Inspection of the hips/pelvis and lower extremities shows no wounds, no deformity. Passive ROM of the right hip shows minimal pain. Left Hip is benign with passive ROM. Bilateral knees show no effusions and no pain with palpation or PROM. Lower extremities appear to be grossly intact with motor and sensation. Calves are SNT. 2+ DP pulses are present. Less than 2 sec cap refill present in toes Results Right superior and inferior pubic ramii fractures - Labs Labs: Abnormal Lab Results - Last 24 Hours (Table) 07/22/24 07/22/24 07/22/24 Range/Units 00:00 00:00 01:15 WBC 17.0 H (3.8-10.6) k/uL RBC (3.80-5.40) m/uL Hgb (11.4-16.0) gm/dL Neutrophils # 13.8 H (1.3-7.7) k/uL Monocytes # 1.1 H (0-1.0) k/uL Sodium (137-145) mmol/L Glucose 143 H (74-99) mg/dL Urine Appearance Cloudy H (Clear) Urine Protein Trace H (Negative) Ur Leukocyte Esterase Moderate H (Negative) Urine WBC 20 H (0-5) /hpf Urine WBC Clumps Rare H (None) /hpf Ur Squamous Epith Cells 12 H (0-4) /hpf Urine Bacteria Rare H (None) /hpf Urine Mucus Moderate H (None) /hpf 07/22/24 07/22/24 Range/Units 10:34 10:34 WBC 12.1 H (3.8-10.6) k/uL RBC 3.55 L (3.80-5.40) m/uL Hgb 10.7 L (11.4-16.0) gm/dL Neutrophils # 9.4 H (1.3-7.7) k/uL Monocytes # (0-1.0) k/uL Sodium 136 L (137-145) mmol/L Glucose 116 H (74-99) mg/dL Urine Appearance (Clear) Urine Protein (Negative) Ur Leukocyte Esterase (Negative) Urine WBC (0-5) /hpf Urine WBC Clumps (None) /hpf Ur Squamous Epith Cells (0-4) /hpf Urine Bacteria (None) /hpf Urine Mucus (None) /hpf H & H 07/22/24 07/22/24 Range/Units 00:00 10:34 Hgb 12.1 10.7 L (11.4-16.0) gm/dL Hct 37.2 34.3 (34.0-46.0) % Coagulation 07/22/24 Range/Units 00:00 INR 1.0 (<1.2) Result Diagrams: 07/22/24 10:34 07/22/24 10:34 - Diagnostic results Hip CT: report reviewed, image reviewed Assessment and Plan (1) Fracture of pubic ramus Narrative/Plan: There is no plan for surgical intervention. She may be Partial weightbearing as tolerated with walker and assist. Continue Pain management, medical management, PT, DVT prophylaxis. She will will need placement to ECF likely. Current Visit: Yes Status: Acute Priority: Medium Code(s): S32.599A - [facility] FRACTURE OF UNSP PUBIS, INIT ENCNTR FOR CLOSED FRACTURE SNOMED Code(s): 1 449237630 Time with Patient: Less than 30
[2024-07-23] MEDS: SODIUM CHLORIDE TAB 1 GM TAB PO SCH (08:22)
[2024-07-23] MEDS: TAMSULOSIN 0.4 MG CAP.ER.24H PO STA (10:25)
[2024-07-23] MEDS ORDERED: ZINC OXIDE PASTE (Z-GUARD) 1 APPLIC TOPICAL PRN (11:31)
--- NOTE | 2024-07-23 15:00 | P.PN ---
Subjective Progress Note Date: 07/23/24 Principal diagnosis: Right pubic ramii fractures She is Seen at bedside today. NAD. She doesn't coomunicate much verbally. History is through nurse and documentation HPI: This is a 64-year-old female with severe neurocognitive disorder and schizophrenia presenting to the emergency department via EMS from adult long- term care facility from a fall. It is reported that patient was in the dining room when a staff member heard the patient fall and immediately went to check on her. There was no reported loss of consciousness at the time of the injury. It is uncertain if patient hit her head during the fall. It is reported that patient is having left hip pain. She is on eliquis for history of PE. History is provided from EMS report and patient's daughter at bedside due to patient's altered mental status. Daughter states that patient is currently at her baseline cognitively. Objective - Vital Signs Vital signs: Vital Signs Temp 97.8 F 07/23/24 13:12 Pulse 88 07/23/24 13:12 Resp 18 07/23/24 13:12 BP 118/72 07/23/24 13:12 Pulse Ox 94 L 07/23/24 13:12 FiO2 Intake & Output 07/22/24 07/23/24 07/23/24 18:59 06:59 18:59 Intake Total 120 Output Total 1606 600 Balance -1606 -480 Weight 70.76 kg Intake: Oral 120 Output: Urine 900 600 Post Void Residual 706 Other: Voiding Method Indwelling Catheter Indwelling Catheter - Exam She is NAD, sitting up in chair eating. She doesn't communicate verbally. Inspection of the hips/pelvis and lower extremities shows no wounds, no defor mity. Passive ROM of the right hip shows minimal pain. Left Hip is benign with passive ROM. Bilateral knees show no effusions and no pain with palpation or PROM. Lower extremities appear to be grossly intact with motor and sensation. Calves are SNT. 2+ DP pulses are present. Less than 2 sec cap refill present in toes - Constitutional General appearance: Present: no acute distress - Labs CBC & Chem 7: 07/22/24 10:34 07/22/24 10:34 Labs: Microbiology - Last 24 Hours (Table) 07/22/24 02:02 Urine Culture - Final Urine,Catheterized Assessment and Plan (1) Fracture of pubic ramus Narrative/Plan: There is no plan for surgical intervention. She may be Partial weightbearing as tolerated with walker and assist. Continue Pain management, medical management, PT, DVT prophylaxis. Expect transfer to ECF in next 1-2 days Current Visit: Yes Status: Acute Priority: Medium Code(s): S32.599A - OTH FRACTURE OF UNSP PUBIS, INIT ENCNTR FOR CLOSED FRACTURE SNOMED Code(s): 4657861098 Time with Patient: Less than 30
--- NOTE | 2024-07-23 21:44 | P.PN ---
Progress Note - Text Progress Note Date: 07/23/24 - History of Present Illness This is a pleasant 64 years old female with past medical history of schizophrenia, neurocognitive disorder, she lives in an adult foster care. Patient at baseline is nonverbal and does not follow command. So information was obtained from the records, staff and I called her daughter Radha at the number in the file which gave me the above information. As per daughter patient was in the living room watching TV of [employer] when the staff heard something dropping and when they went she was on the floor before they brought her to the hospital. At baseline patient is restless, she cannot sit still if she is in pain as per daughter, but even without pain she is restless. Currently she is lying in bed awake alert, does not follow commands. She she withdraws somewhat to painful stimuli's in all extremities, no asymmetry noted. She is afebrile, vitals stable. Labs showing leukocytosis 17,000 came back to 12,000 with antibiotic Further workup showing possible UTI with urine analysis Growing moderate leukocyte esterase and WBC is 20 H, rest of labs including BMP and liver enzymes were unremarkable. Chest x-ray is normal CT of the abdomen and pelvis showing comminuted minimally displaced right superior and inferior pubic rami fractures with associated posttraumatic soft tissue inflammatory changes. CT of the brain is negative for acute process. CT of the cervical spine showing no acute fracture or dislocation July 23: I assumed care for medical service today. Patient reclining in bed. Eating her breakfast. Some pain present. Because of dementia limited historian Active Medications Acetaminophen (Acetaminophen Tab 325 Mg Tab) 650 mg PO Q6HR PRN PRN Reason: Mild Pain or Fever > 100.5 Apixaban (Apixaban 5 Mg Tab) 5 mg PO BID@0800,1999 [facility]; Protocol Last Admin: 07/23/24 19:50 Dose: 5 mg Famotidine (Famotidine 20 Mg Tab) 20 mg PO BID [facility] Last Admin: 07/23/24 19:50 Dose: 20 mg Lorazepam (Lorazepam 0.5 Mg Tab) 0.5 mg PO TID@08,14,20 [facility] Last Admin: 07/23/24 19:50 Dose: 0.5 mg Melatonin (Melatonin 5 Mg Tablet) 5 mg PO HS PRN PRN Reason: sleep Morphine Sulfate (Morphine Sulfate 4 Mg/Ml Syringe) 4 mg IVP Q6HR PRN PRN Reason: mod to severe pain (4-10) Last Admin: 07/22/24 12:20 Dose: 4 mg Naloxone HCl (Naloxone 0.4 Mg/Ml 1 Ml Vial) 0.2 mg IV Q2M PRN PRN Reason: Opioid Reversal Risperidone (Risperidone 1 Mg Tab) 1 mg PO HS@1999 [facility] Last Admin: 07/23/24 19:50 Dose: 1 mg Senna/Docusate Sodium (Sennosides-Docusate Sodium 1 Each Tab) 2 each PO HS@1999 [facility] Last Admin: 07/23/24 19:50 Dose: 2 each Sodium Chloride (Sodium Chloride Tab 1 Gm Tab) 1 gm PO DAILY@0800 [facility] Last Admin: 07/23/24 08:22 Dose: 1 gm Tamsulosin HCl (Tamsulosin 0.4 Mg Cap.Er.24h) 0.4 mg PO PC-BRKFST [facility] On examination: VITAL SIGNS: [97.8, 88, 18, 118 x 72, 94% room air] GENERAL APPEARANCE: Reclining in bed, eating breakfast. HEENT: Normal external appearance of nose and ear. Oral cavity normal EYES: Pupils equal. Conjunctiva normal. NECK: JVD not raised. Mass not palpable. RESPIRATORY: Respiratory effort normal. Lungs clear to auscultation. CARDIOVASCULAR: First and second sounds normal. No edema. ABDOMEN: Soft. Liver and spleen not palpable. No tenderness. No mass palpable. PSYCHIATRY: May answer occasional question. Mood affect to be normal. INVESTIGATIONS, reviewed in the clinical context: July 22: White count 12.1 hemoglobin 10.7 platelets 277 potassium 3[address] abdomen pelvis: Comminuted minimally displaced right superior inferior pubic rami fracture with associated posttraumatic soft tissue inflammatory changes. Assessment and plan: -Fall at home with no reported syncope -Traumatic injury with CT showing comminuted minimally displaced right superior and inferior pubic rami fractures with associated posttraumatic soft tissue inflammatory changes Nonsurgical intervention. Pain control. Being followed by Ortho Partial weightbearing as tolerated. With walker or assist. -Acute urinary tract infection with leukocytosis, IV ceftriaxone -Schizophrenia -Neurocognitive dysfunction, patient is nonverbal, noncommunicative and does not follow commands at baseline. Usually she is restless. -Chronic PE Eliquis -No code Past Medical History Past Medical History: COPD, Dementia, Hypertension, Pulmonary Embolus (PE) Additional Past Medical History / Comment(s): schizophrenia with neurologic disorder, History of Any Multi-Drug Resistant Organisms: None Reported Past Surgical History: No Surgical Hx Reported Past Anesthesia/Blood Transfusion Reactions: No Reported Reaction Past Psychological History: Depression, Schizophrenia Smoking Status: Former smoker Past Alcohol Use History: None Reported Past Drug Use History: None Reported
[2024-07-24] MEDS: TAMSULOSIN 0.4 MG CAP.ER.24H PO SCH (08:56)
[2024-07-24 10:35] LABS: HGB 11.4 gm/dL (11.4-16.0); MCH 30.5 pg (25.0-35.0); MCHC 32.6 g/dL (31.0-37.0); MCV 93.5 fL (80.0-100.0); Mean Platelet Volume 8.1; Platelet Count 318 k/uL (150-450); RBC 3.74 m/uL (3.80-5.40); RDW 13.6 % (11.5-15.5); WBC 13.8 k/uL (3.8-10.6)
--- NOTE | 2024-07-24 15:12 | P.PN ---
Subjective Progress Note Date: 07/24/24 Principal diagnosis: Right pubic ramii fractures She is Seen at bedside today. We are following for right pubic ramii fractures. She is NAD sitting comfortable at bedside chair watching TV, eating and drinking. She doesn't communicate much verbally. History is through nurse and d ocumentation HPI: This is a 64-year-old female with severe neurocognitive disorder and schizophrenia presenting to the emergency department via EMS from adult long- term care facility from a fall. It is reported that patient was in the dining room when a staff member heard the patient fall and immediately went to check on her. There was no reported loss of consciousness at the time of the injury. It is uncertain if patient hit her head during the fall. It is reported that patient is having left hip pain. She is on eliquis for history of PE. History is provided from EMS report and patient's daughter at bedside due to patient's altered mental status. Daughter states that patient is currently at her baseline cognitively. Objective - Vital Signs Vital signs: Vital Signs Temp 98.3 F 07/24/24 13:09 Pulse 78 07/24/24 13:09 Resp 18 07/24/24 13:09 BP 101/68 07/24/24 13:09 Pulse Ox 100 07/24/24 13:09 FiO2 Intake & Output 07/23/24 07/24/24 07/24/24 18:59 06:59 18:59 Intake Total 1120 660 Output Total 850 100 700 Balance 270 560 -700 Intake: Oral 1120 660 Output: Urine 850 100 700 Uretheral (Lomeli) 700 Other: Voiding Method Indwelling Catheter Indwelling Catheter Indwelling Catheter - Exam She is NAD, sitting up in chair eating. She doesn't communicate verbally. No change in Exam: Inspection of the hips/pelvis and lower extremities shows no wounds, no deformity. Passive ROM of the right hip shows minimal pain. Left Hip is benign with passive ROM. Bilateral knees show no effusions and no pain with palpation or PROM. Lower extremities appear to be grossly intact with motor and sensation. Calves are SNT. 2+ DP pulses are present. Less than 2 sec cap refill present in toes - Constitutional General appearance: Present: no acute distress - Labs CBC & Chem 7: 07/24/24 09:51 07/22/24 10:34 Labs: Abnormal Lab Results - Last 24 Hours (Table) 07/24/24 Range/Units 09:51 WBC 13.8 H (3.8-10.6) k/uL RBC 3.74 L (3.80-5.40) m/uL Microbiology - Last 24 Hours (Table) 07/22/24 10:34 Blood Culture - Preliminary Blood Assessment and Plan (1) Fracture of pubic ramus Narrative/Plan: There is no plan for surgical intervention. She may be Partial weightbearing as tolerated with walker and assist. Continue Pain management, medical management, PT, DVT prophylaxis. She is being treated for UTI. She may be transferred to [facility] from orthopedic standpoint when okay with IM Current Visit: Yes Status: Acute Priority: Medium Code(s): S32.599A - OTH FRACTURE OF UNSP PUBIS, INIT ENCNTR FOR CLOSED FRACTURE SNOMED Code(s): 5797296295 Time with Patient: Less than 30
--- NOTE | 2024-07-24 15:43 | P.PN ---
Progress Note - Text Progress Note Date: 07/24/24 - History of Present Illness This is a pleasant 64 years old female with past medical history of schizophrenia, neurocognitive disorder, she lives in an adult foster care. Patient at baseline is nonverbal and does not follow command. So information was obtained from the records, staff and I called her daughter Radha at the number in the file which gave me the above information. As per daughter patient was in the living room watching TV of [employer] when the staff heard something dropping and when they went she was on the floor before they brought her to the hospital. At baseline patient is restless, she cannot sit still if she is in pain as per daughter, but even without pain she is restless. Currently she is lying in bed awake alert, does not follow commands. She she withdraws somewhat to painful stimuli's in all extremities, no asymmetry noted. She is afebrile, vitals stable. Labs showing leukocytosis 17,000 came back to 12,000 with antibiotic Further workup showing possible UTI with urine analysis Growing moderate leukocyte esterase and WBC is 20 H, rest of labs including BMP and liver enzymes were unremarkable. Chest x-ray is normal CT of the abdomen and pelvis showing comminuted minimally displaced right superior and inferior pubic rami fractures with associated posttraumatic soft tissue inflammatory changes. CT of the brain is negative for acute process. CT of the cervical spine showing no acute fracture or dislocation July 2: I assumed care for medical service today. Patient reclining in bed. Eating her breakfast. Some pain present. Because of dementia limited historian July 3: Up in chair. Comfortable. Eating breakfast. May answer occasional question. Active Medications Acetaminophen (Acetaminophen Tab 325 Mg Tab) 650 mg PO Q6HR PRN PRN Reason: Mild Pain or Fever > 100.5 Apixaban (Apixaban 5 Mg Tab) 5 mg PO BID@0800,2000 [facility]; Protocol Last Admin: 07/24/24 08:56 Dose: 5 mg Famotidine (Famotidine 20 Mg Tab) 20 mg PO BID [facility] Last Admin: 07/24/24 08:56 Dose: 20 mg Ceftriaxone Sodium 1 gm/ (Sodium Chloride) 50 mls @ 100 mls/hr IVPB Q24H [facility]; Protocol Last Admin: 07/23/24 21:52 Dose: 100 mls/hr Lorazepam (Lorazepam 0.5 Mg Tab) 0.5 mg PO TID@08,14,20 [facility] Last Admin: 07/24/24 08:56 Dose: 0.5 mg Melatonin (Melatonin 5 Mg Tablet) 5 mg PO HS PRN PRN Reason: sleep Morphine Sulfate (Morphine Sulfate 4 Mg/Ml Syringe) 4 mg IVP Q6HR PRN PRN Reason: mod to severe pain (4-10) Last Admin: 07/22/24 12:20 Dose: 4 mg Naloxone HCl (Naloxone 0.4 Mg/Ml 1 Ml Vial) 0.2 mg IV Q2M PRN PRN Reason: Opioid Reversal Risperidone (Risperidone 1 Mg Tab) 1 mg PO HS@1999 [facility] Last Admin: 07/23/24 19:50 Dose: 1 mg Senna/Docusate Sodium (Sennosides-Docusate Sodium 1 Each Tab) 2 each PO HS@1999 [facility] Last Admin: 07/23/24 19:50 Dose: 2 each Sodium Chloride (Sodium Chloride Tab 1 Gm Tab) 1 gm PO DAILY@0800 [facility] Last Admin: 07/24/24 08:56 Dose: 1 gm Tamsulosin HCl (Tamsulosin 0.4 Mg Cap.Er.24h) 0.4 mg PO PC-BRKFST [facility] Last Admin: 07/24/24 08:56 Dose: 0.4 mg On examination: VITAL SIGNS: 98.3, 78, 18, 101 x 68, 100% room air GENERAL APPEARANCE: Up in bed, eating breakfast. HEENT: Normal external appearance of nose and ear. Oral cavity normal EYES: Pupils equal. Conjunctiva normal. NECK: JVD not raised. Mass not palpable. RESPIRATORY: Respiratory effort normal. Lungs clear to auscultation. CARDIOVASCULAR: First and second sounds normal. No edema. ABDOMEN: Soft. Liver and spleen not palpable. No tenderness. No mass palpable. PSYCHIATRY: May answer occasional question. Mood affect to be normal. INVESTIGATIONS, reviewed in the clinical context: July 24: White count 13.8 hemoglobin 9.4 July 22: White count 12.1 hemoglobin 10.7 platelets 277 potassium 3.[address] abdomen pelvis: Comminuted minimally displaced right superior inferior pubic rami fracture with associated posttraumatic soft tissue inflammatory changes. Assessment and plan: -Fall at home with no reported syncope -Traumatic injury with CT showing comminuted minimally displaced right superior and inferior pubic rami fractures with associated posttraumatic soft tissue inflammatory changes Nonsurgical intervention. Pain control. Being followed by Ortho Partial weightbearing as tolerated. With walker or assist. -Acute urinary tract infection with leukocytosis, IV ceftriaxone -Schizophrenia -Neurocognitive dysfunction, patient is nonverbal, noncommunicative and does not follow commands at baseline. Usually she is restless. -Chronic PE Eliquis -No code Continue current treatment plan.On IV ceftriaxone. [facility] Past Medical History Past Medical History: COPD, Dementia, Hypertension, Pulmonary Embolus (PE) Additional Past Medical History / Comment(s): schizophrenia with neurologic disorder, History of Any Multi-Drug Resistant Organisms: None Reported Past Surgical History: No Surgical Hx Reported Past Anesthesia/Blood Transfusion Reactions: No Reported Reaction Past Psychological History: Depression, Schizophrenia Smoking Status: Former smoker Past Alcohol Use History: None Reported Past Drug Use History: None Reported
--- NOTE | 2024-07-25 19:33 | P.PN ---
Progress Note - Text Progress Note Date: 07/25/24 - History of Present Illness This is a pleasant 64 years old female with past medical history of schizophrenia, neurocognitive disorder, she lives in an adult foster care. Patient at baseline is nonverbal and does not follow command. So information was obtained from the records, staff and I called her daughter Radha at the number in the file which gave me the above information. As per daughter patient was in the living room watching TV of [employer] when the staff heard something dropping and when they went she was on the floor before they brought her to the hospital. At baseline patient is restless, she cannot sit still if she is in pain as per daughter, but even without pain she is restless. Currently she is lying in bed awake alert, does not follow commands. She she withdraws somewhat to painful stimuli's in all extremities, no asymmetry noted. She is afebrile, vitals stable. Labs showing leukocytosis 17,000 came back to 12,000 with antibiotic Further workup showing possible UTI with urine analysis Growing moderate leukocyte esterase and WBC is 20 H, rest of labs including BMP and liver enzymes were unremarkable. Chest x-ray is normal CT of the abdomen and pelvis showing comminuted minimally displaced right superior and inferior pubic rami fractures with associated posttraumatic soft tissue inflammatory changes. CT of the brain is negative for acute process. CT of the cervical spine showing no acute fracture or dislocation July 23: I assumed care for medical service today. Patient reclining in bed. Eating her breakfast. Some pain present. Because of dementia limited historian July 3: Up in chair. Comfortable. Eating breakfast. May answer occasional question. July 25: Saw the patient this morning. Comfortable. Oral intake fair. Current medications to be continued. Looking into going to the rehab. Continue ceftriaxone Active Medications Acetaminophen (Acetaminophen Tab 325 Mg Tab) 650 mg PO Q6HR PRN PRN Reason: Mild Pain or Fever > 100.5 Apixaban (Apixaban 5 Mg Tab) 5 mg PO BID@0800,2000 PENDING SALE TO [facility]; Protocol Last Admin: 07/25/24 08:31 Dose: 5 mg Famotidine (Famotidine 20 Mg Tab) 20 mg PO BID KAVITHA Last Admin: 07/25/24 08:31 Dose: 20 mg Ceftriaxone Sodium 1 gm/ (Sodium Chloride) 50 mls @ 100 mls/hr IVPB Q24H PENDING SALE TO [facility]; Protocol Last Admin: 07/24/24 22:01 Dose: 100 mls/hr Lorazepam (Lorazepam 0.5 Mg Tab) 0.5 mg PO TID@08,14,20 PENDING SALE TO [facility] Last Admin: 07/25/24 16:06 Dose: 0.5 mg Melatonin (Melatonin 5 Mg Tablet) 5 mg PO HS PRN PRN Reason: sleep Morphine Sulfate (Morphine Sulfate 4 Mg/Ml Syringe) 4 mg IVP Q6HR PRN PRN Reason: mod to severe pain (4-10) Last Admin: 07/22/24 12:20 Dose: 4 mg Naloxone HCl (Naloxone 0.4 Mg/Ml 1 Ml Vial) 0.2 mg IV Q2M PRN PRN Reason: Opioid Reversal Risperidone (Risperidone 1 Mg Tab) 1 mg PO HS@1999 PENDING SALE TO [facility] Last Admin: 07/24/24 20:13 Dose: 1 mg Senna/Docusate Sodium (Sennosides-Docusate Sodium 1 Each Tab) 2 each PO HS@1999 PENDING SALE TO [facility] Last Admin: 07/24/24 20:12 Dose: 2 each Sodium Chloride (Sodium Chloride Tab 1 Gm Tab) 1 gm PO DAILY@0800 PENDING SALE TO [facility] Last Admin: 07/25/24 08:31 Dose: 1 gm Tamsulosin HCl (Tamsulosin 0.4 Mg Cap.Er.24h) 0.4 mg PO PC-BRKFST PENDING SALE TO [facility] Last Admin: 07/25/24 08:31 Dose: 0.4 mg On examination: VITAL SIGNS: 100.9, 89, 16, 107 x 70, 93% room air GENERAL APPEARANCE: Comfortable HEENT: Normal external appearance of nose and ear. Oral cavity normal EYES: Pupils equal. Conjunctiva normal. NECK: JVD not raised. Mass not palpable. RESPIRATORY: Respiratory effort normal. Lungs clear to auscultation. CARDIOVASCULAR: First and second sounds normal. No edema. ABDOMEN: Soft. Liver and spleen not palpable. No tenderness. No mass palpable. PSYCHIATRY: May answer occasional question. Mood affect to be normal. INVESTIGATIONS, reviewed in the clinical context: July 24: White count 13.8 hemoglobin 9.4 July 22: White count 12.1 hemoglobin 10.7 platelets 277 potassium 3[address] abdomen pelvis: Comminuted minimally displaced right superior inferior pubic rami fracture with associated posttraumatic soft tissue inflammatory changes. Assessment and plan: -Fall at home with no reported syncope -Traumatic injury with CT showing comminuted minimally displaced right superior and inferior pubic rami fractures with associated posttraumatic soft tissue inflammatory changes Nonsurgical intervention. Pain control. Being followed by Ortho Partial weightbearing as tolerated. With walker or assist. -Acute urinary tract infection with leukocytosis, IV ceftriaxone -Schizophrenia -Neurocognitive dysfunction, patient is nonverbal, noncommunicative and does not follow commands at baseline. Usually she is restless. -Chronic PE Eliquis -Acute gait dysfunction secondary to pubic rami fracture For rehab. -No code Continue current treatment plan. Pending ECF Past Medical History Past Medical History: COPD, Dementia, Hypertension, Pulmonary Embolus (PE) Additional Past Medical History / Comment(s): schizophrenia with neurologic disorder, History of Any Multi-Drug Resistant Organisms: None Reported Past Surgical History: No Surgical Hx Reported Past Anesthesia/Blood Transfusion Reactions: No Reported Reaction Past Psychological History: Depression, Schizophrenia Smoking Status: Former smoker Past Alcohol Use History: None Reported Past Drug Use History: None Reported
[2024-07-25] MEDS: ACETAMINOPHEN TAB 325 MG TAB PO PRN (21:00)
--- NOTE | 2024-07-26 11:46 | P.DS ---
Providers Date of admission: 07/23/24 09:32 Expected date of discharge: 07/26/24 Attending physician: Coleman Dejesus Consults: 07/24/24 10:40 Consult Physician Routine Consulting Provider: Mike John Consult Reason/Comments: established pt Do you want consulting provider notified?: Already Contacted Primary care physician: Johny Brewster, NPC - Discharge Diagnosis(es) (1) Fracture of pubic ramus Patient was admitted through the ED on 07/21/24 after suffering from a fall. She was found to have a right pubic ramii fractures. She was admitted for pain management, medical management and placement. Hospital course has remained without complication. On day of discharge she is afebrile, vital signs stable, labs within acceptable ranges, tolerating by mouth meds and diet, voiding without difficulty, positive flatus, denies abdominal pain or calf pain, pain is controlled on oral pain medication and has no new complaints. Extremity neurovascular status is intact, calves are soft and nontender, abdomen soft and nontender. Review of systems is unobtainable due to mental status Current Visit: Yes Status: Acute Priority: Medium Procedures: none Patient Condition at Discharge: Fair Plan - Discharge Summary Discharge Rx Participant: No New Discharge Prescriptions: New Tamsulosin [Flomax] 0.4 mg PO PC-BRKFST cap Continue Cetirizine HCl [Zyrtec] 10 mg PO DAILY PRN PRN Reason: allergies Sennosides/Docusate Sodium [Senna Plus 8.6-50 mg Softgel] 2 tab PO HS@2000 risperiDONE ORAL SOLN [RisperDAL ORAL SOLN] 1 mg PO HS@1999 Sodium Chloride Tab 1 gm PO DAILY@0800 Multivitamins, Thera [Multivitamin (formulary)] 1 tab PO DAILY@0800 Apixaban [Eliquis] 5 mg PO BID@0800,1999 LORazepam [Ativan] 0.5 mg PO TID@ #9 tab Acetaminophen Tab [Tylenol] 500 - 1,000 mg PO Q8H PRN PRN Reason: Pain Vitamin B-12 5000mcg Liquid 5,000 mcg PO DAILY@0800 Melatonin 5 mg PO HS PRN PRN Reason: sleep Discontinued Melatonin 10 mg PO HS@1999 Discharge Medication List Acetaminophen Tab [Tylenol] 500 - 1,000 mg PO Q8H PRN 07/22/24 [History] Apixaban [Eliquis] 5 mg PO BID@0800,199907/22/24 [History] Cetirizine HCl [Zyrtec] 10 mg PO DAILY PRN 07/22/24 [History] Melatonin 5 mg PO HS PRN 07/22/24 [History] Multivitamins, Thera [Multivitamin (formulary)] 1 tab PO DAILY@0807/22/24 [History] Sennosides/Docusate Sodium [Senna Plus 8.6-50 mg Softgel] 2 tab PO HS@199907/22/24 [History] Sodium Chloride Tab 1 gm PO DAILY@79907/22/24 [History] Vitamin B-12 5000mcg Liquid 5,000 mcg PO DAILY@79907/22/24 [History] risperiDONE ORAL SOLN [RisperDAL ORAL SOLN] 1 mg PO HS@199907/22/24 [History] LORazepam [Ativan] 0.5 mg PO TID@08,14,20 #9 tab 07/24/24 [Rx] Tamsulosin [Flomax] 0.4 mg PO PC-BRKFST cap 07/24/24 [Rx] Follow up Appointment(s)/Referral(s): Johny Brewster NPC [Primary Care Provider] - 1 Week Coleman Dejesus MD [STAFF PHYSICIAN] - 10 Days Activity/Diet/Wound Care/Special Instructions: Partial weightbear as tolerated with walker and assist F/U in office Discharge Disposition: TRANSFER TO SNF/ECF
[2024-07-26 13:04] VITALS: BP 101/62; PULSE 85; RESP 15; TEMP 98.1
--- NOTE | 2024-07-26 18:37 | P.PN ---
Progress Note - Text Progress Note Date: 07/26/24 - History of Present Illness This is a pleasant 64 years old female with past medical history of schizophrenia, neurocognitive disorder, she lives in an adult foster care. Patient at baseline is nonverbal and does not follow command. So information was obtained from the records, staff and I called her daughter Radha at the number in the file which gave me the above information. As per daughter patient was in the living room watching TV of [employer] when the staff heard something dropping and when they went she was on the floor before they brought her to the hospital. At baseline patient is restless, she cannot sit still if she is in pain as per daughter, but even without pain she is restless. Currently she is lying in bed awake alert, does not follow commands. She she withdraws somewhat to painful stimuli's in all extremities, no asymmetry noted. She is afebrile, vitals stable. Labs showing leukocytosis 17,000 came back to 12,000 with antibiotic Further workup showing possible UTI with urine analysis Growing moderate leukocyte esterase and WBC is 20 H, rest of labs including BMP and liver enzymes were unremarkable. Chest x-ray is normal CT of the abdomen and pelvis showing comminuted minimally displaced right superior and inferior pubic rami fractures with associated posttraumatic soft tissue inflammatory changes. CT of the brain is negative for acute process. CT of the cervical spine showing no acute fracture or dislocation July 23: I assumed care for medical service today. Patient reclining in bed. Eating her breakfast. Some pain present. Because of dementia limited historian July 3: Up in chair. Comfortable. Eating breakfast. May answer occasional question. July 25: Saw the patient this morning. Comfortable. Oral intake fair. Current medications to be continued. Looking into going to the rehab. Continue ceftriaxone July 26: Will DC antibiotics. No further outpatient antibiotics for UTI. Comfortable. Getting discharged to F. Spoke to block and case maker. On examination: VITAL SIGNS: 98.1, 85, 15, 101 x 62, 93% room air GENERAL APPEARANCE: Comfortable HEENT: Normal external appearance of nose and ear. Oral cavity normal EYES: Pupils equal. Conjunctiva normal. NECK: JVD not raised. Mass not palpable. RESPIRATORY: Respiratory effort normal. Lungs clear to auscultation. CARDIOVASCULAR: First and second sounds normal. No edema. ABDOMEN: Soft. Liver and spleen not palpable. No tenderness. No mass palpable. PSYCHIATRY: May answer occasional question. Mood affect to be normal. INVESTIGATIONS, reviewed in the clinical context: July 24: White count 13.8 hemoglobin 9.4 July 22: White count 12.1 hemoglobin 10.7 platelets 277 potassium 3.[address] abdomen pelvis: Comminuted minimally displaced right superior inferior pubic rami fracture with associated posttraumatic soft tissue inflammatory changes. Assessment and plan: -Fall at home with no reported syncope -Traumatic injury with CT showing comminuted minimally displaced right superior and inferior pubic rami fractures with associated posttraumatic soft tissue inflammatory changes Nonsurgical intervention. Pain control. Being followed by Ortho Partial weightbearing as tolerated. With walker or assist. -Acute urinary tract infection with leukocytosis, IV ceftriaxone-completed course -Schizophrenia -Neurocognitive dysfunction, patient is nonverbal, noncommunicative and does not follow commands at baseline. Usually she is restless. -Chronic PE Eliquis -Acute gait dysfunction secondary to pubic rami fracture For rehab. -No code Patient getting discharged to rehab. Antibiotics have been discontinued Past Medical History Past Medical History: COPD, Dementia, Hypertension, Pulmonary Embolus (PE) Additional Past Medical History / Comment(s): schizophrenia with neurologic disorder, History of Any Multi-Drug Resistant Organisms: None Reported Past Surgical History: No Surgical Hx Reported Past Anesthesia/Blood Transfusion Reactions: No Reported Reaction Past Psychological History: Depression, Schizophrenia Smoking Status: Former smoker Past Alcohol Use History: None Reported Past Drug Use History: None Reported
== END 2024-07-26 15:00 | DRG 536 ==
LOC: EC 22:43 → 5NMEDONC 07-22 04:43 → OBSVTOIN 07-23 09:32
PROVIDERS: ADMIT Orthopaedic Surgery Sports Medicine; ATTEND Orthopaedic Surgery Sports Medicine
DX: S32.511A Fracture of superior rim of right pubis, initial encounter for closed fracture (principal); I27.82 Chronic pulmonary embolism; F20.89 Other schizophrenia; F03.93 Unspecified dementia, unspecified severity, with mood disturbance; N39.0 Urinary tract infection, site not specified; S32.591A Other specified fracture of right pubis, initial encounter for closed fracture; J44.9 Chronic obstructive pulmonary disease, unspecified; Z66 Do not resuscitate; I10 Essential (primary) hypertension; W19.XXXA Unspecified fall, initial encounter; Y92.128 Other place in nursing home as the place of occurrence of the external cause; Z79.01 Long term (current) use of anticoagulants; Z79.899 Other long term (current) drug therapy; Z87.891 Personal history of nicotine dependence
CPT/HCPCS: 36415; 51701; 70450; 71045; 72125; 73502; 74176; 80048; 80053; 81001; 82550; 83735; 84484; 85025; 85027; 85610; 85730; 87040; 87086; 93005; 96374; 96375; 99285